=== PATIENT | female | born 1965 | race Caucasian/White ===

== ENCOUNTER 2016-11-06 09:34 | Emergency (ER) | payer BC ==
[~2016-11-06 09:34] MED LIST: AMOX1TAB61 PO
--- NOTE | 2016-11-06 09:35 | PHYS DOC ---
Adult General Chief Complaint Chief Complaint: BACK PAIN - NO INJURY HPI HPI Patient is a 50 year old female who presents with left lower back pain that radiates around to her left lower quadrant. She states his symptoms started at 6 AM this morning he been constant in nature nothing makes it better or worse. She does feel some nausea but denies any vomiting, she did have a loose/liquid stool this morning but otherwise been having normal bowel movements. She denies any fevers chills, chest pain shortness of breath. He states yesterday she had mild upset stomach but otherwise was normal. She states this kind of comes and goes ever since she's had all of her abdominal surgeries in the past. She's had a gastric sleeve, Susan-en-Y, and fistulas in addition to cholecystectomy. Her last surgery was in 2013. Review of Systems Review of Systems Constitutional: Denies fever or chills [] Eyes: Denies change in visual acuity, redness, or eye pain [] HENT: Denies nasal congestion or sore throat [] Respiratory: Denies cough or shortness of breath [] Cardiovascular: No additional information not addressed in HPI [] GI: Denies any blood in her stools, positive for abdominal pain, nausea, diarrhea Integument: Denies rash or skin lesions [] Neurologic: Denies headache, focal weakness or sensory changes [] Endocrine: Denies polyuria or polydipsia [] Current Medications Current Medications Current Medications Medications (Trade) Dose Ordered Sig/Sherice Start Time Stop Time Status Last Admin Dose Admin Fentanyl Citrate (Fentanyl 2ml Vial) 100 mcg STK-MED ONCE 11/06/16 11:52 11/06/16 11:53 DC Info (Do NOT chart on this entry -- for MONITORING) 1 each PRN DAILY PRN 11/06/16 10:15 11/08/16 10:14 Iohexol (Omnipaque 240 Mg/ml) 50 ml 1X ONCE 11/06/16 10:00 11/06/16 10:01 DC 11/06/16 10:00 50 ML Iohexol (Omnipaque 300 Mg/ml) 75 ml 1X ONCE 11/06/16 10:00 11/06/16 10:01 DC 11/06/16 10:00 75 ML Ketorolac Tromethamine (Toradol) 30 mg 1X ONCE 5/7/17 12:15 11/06/16 12:16 DC 11/06/16 12:20 30 MG Morphine Sulfate 4 mg PRN Q15MIN PRN 11/06/16 10:00 11/07/16 09:59 11/06/16 10:26 4 MG Sodium Chloride 1,000 ml @ 1,000 mls/hr 1X ONCE 11/06/16 12:15 11/06/16 13:14 11/06/16 12:21 1,000 MLS/HR Tamsulosin HCl (Flomax) 0.4 mg 1X ONCE 11/06/16 12:15 11/06/16 12:16 DC 11/06/16 12:20 0.4 MG Allergies Allergies Allergies Coded Allergies Type Severity Reaction Last Updated Verified Sulfa (Sulfonamide Antibiotics) Allergy Severe 09/02/13 Yes coconut oil Allergy Intermediate Rash 09/02/13 Yes levofloxacin Allergy Intermediate Itching 09/14/13 Yes piperacillin sodium Allergy Intermediate Rash 09/10/13 Yes tazobactam sodium Allergy Intermediate Rash 09/10/13 Yes vancomycin Allergy Intermediate Rash 09/02/13 Yes Erythromycin Base Adverse Reaction Intermediate Rash 09/02/13 Yes Physical Exam Physical Exam Constitutional: Well developed, well nourished, no acute distress, non-toxic appearance. [] HENT: Normocephalic, atraumatic, bilateral external ears normal, oropharynx moist, no oral exudates, nose normal. [] Eyes: PERRLA, EOMI, conjunctiva normal, no discharge. [] Neck: Normal range of motion, no tenderness, supple, no stridor. [] Cardiovascular:Heart rate regular rhythm, no murmur [] Lungs & Thorax: Bilateral breath sounds clear to auscultation [] Abdomen: Bowel sounds hypoactive, mild tender to palpation in the left lower quadrant and lumbar area, no rebound or guarding, no masses, no pulsatile masses. [] Skin: Warm, dry, no erythema, no rash. [] Back: No tenderness, no CVA tenderness. [] Extremities: No tenderness, no cyanosis, no clubbing, ROM intact, no edema. [] Neurologic: Alert and oriented X 3, normal motor function, normal sensory function, no focal deficits noted. [] Psychologic: Affect normal, judgement normal, mood normal. [] Current Patient Data Vital Signs Vital Signs Date Time Temp Pulse Resp B/P (MAP) Pulse Ox O2 Delivery O2 Flow Rate FiO2 11/06/16 11:56 61 22 136/70 (92) 99 Room Air 11/06/16 09:40 97.8 97.8 Lab Values Laboratory Tests Test 11/06/16 09:09 11/06/16 10:05 11/06/16 10:10 POC Urine HCG, Qualitative Hcg negative (Negative) Urine Collection Type Void Urine Color Yellow Urine Clarity Clear Urine pH 6.0 Urine Specific Grethel 1.015 Urine Protein Negative mg/dL (NEG-TRACE) Urine Glucose (UA) Negative mg/dL (NEG) Urine Ketones (Stick) Negative mg/dL (NEG) Urine Blood Negative (NEG) Urine Nitrite Negative (NEG) Urine Bilirubin Negative (NEG) Urine Urobilinogen Dipstick 1.0 mg/dL (0.2 mg/dL) Urine Leukocyte Esterase Negative (NEG) Urine RBC 0 /HPF (0-2) Urine WBC 0 /HPF (0-4) Urine Squamous Epithelial Cells Few /LPF Urine Bacteria 0 /HPF (0-FEW) White Blood Count 5.7 x10^3/uL (4.0-11.0) Red Blood Count 5.12 x10^6/uL (3.50-5.40) Hemoglobin 13.9 g/dL (12.0-15.5) Hematocrit 41.5 % (36.0-47.0) Mean Corpuscular Volume 81 fL (79-100) Mean Corpuscular Hemoglobin 27 pg (25-35) Mean Corpuscular Hemoglobin Concent 34 g/dL (31-37) Red Cell Distribution Width 14.6 % (11.5-14.5) H Platelet Count 116 x10^3/uL (140-400) L Neutrophils (%) (Auto) 73 % (31-73) Lymphocytes (%) (Auto) 15 % (24-48) L Monocytes (%) (Auto) 10 % (0-9) H Eosinophils (%) (Auto) 2 % (0-3) Basophils (%) (Auto) 0 % (0-3) Neutrophils # (Auto) 4.1 x10^3uL (1.8-7.7) Lymphocytes # (Auto) 0.9 x10^3/uL (1.0-4.8) L Monocytes # (Auto) 0.6 x10^3/uL (0.0-1.1) Eosinophils # (Auto) 0.1 x10^3/uL (0.0-0.7) Basophils # (Auto) 0.0 x10^3/uL (0.0-0.2) Prothrombin Time 13.4 SEC (11.7-14.0) Prothrombin Time INR 1.1 (0.8-1.1) PTT 27 SEC (24-38) Sodium Level 140 mmol/L (136-145) Potassium Level 4.1 mmol/L (3.5-5.1) Chloride Level 103 mmol/L (98-107) Carbon Dioxide Level 29 mmol/L (21-32) Anion Gap 8 (6-14) Blood Urea Nitrogen 15 mg/dL (7-20) Creatinine 0.9 mg/dL (0.6-1.0) Estimated GFR (Cockcroft-Gault) 66.5 Glucose Level 92 mg/dL (70-99) Calcium Level 9.0 mg/dL (8.5-10.1) Total Bilirubin 0.5 mg/dL (0.2-1.0) Direct Bilirubin 0.1 mg/dL (0.0-0.2) Aspartate Amino Transferase (AST) 24 U/L (15-37) Alanine Aminotransferase (ALT) 23 U/L (14-59) Alkaline Phosphatase 81 U/L (46-116) Creatine Kinase 112 U/L (26-192) Creatine Kinase MB (Mass) 1.0 ng/mL (0.0-3.6) Creatine Kinase MB Relative Index 0.9 % (0-4) Total Protein 8.3 g/dL (6.4-8.2) H Albumin 3.6 g/dL (3.4-5.0) Lipase 285 U/L (73-393) Laboratory Tests 11/06/16 10:10 Laboratory Tests 11/06/16 10:10 EKG EKG [] Radiology/Procedures Radiology/Procedures [facility] [address] [place] [address] IMAGING REPORT Signed PATIENT: EBONI WHEELER ACCOUNT: [id number] : 1965 LOCATION: ER AGE: 50 SEX: F EXAM STATUS: REG ER ORD. PHYSICIAN: HERB IYER MD REASON: abd pain PROCEDURE: CT ABD PELV W/ORAL&IV CONTRAST Indication left-sided abdominal pain. Axial images to the abdomen and pelvis were obtained. Both IV and oral contrast were administered. Approximately 75 cc of Omnipaque 300 was administered intravenously. Note is made of a previous examination 09/02/2013. There is a small pulmonary nodule at right lung base stable relative to the previous exam. An acute or significant finding at either lung base is not seen. There is a calcification ventral to the liver in the abdominal mesentery. This may reflect an area of mesenteric infarction. It is of doubtful clinical significance. The liver appears unremarkable. The spleen is at the upper limits of normal in size. There is a low-density 2 cm mass associated with the ventral and caudal aspect of the spleen. This may represent a cyst. It could be the sequela of an old injury. It is of doubtful clinical significance. An acute finding is not apparent associated with the spleen. The pancreas is unremarkable. There is a right adrenal mass measuring 1.8 cm in greatest dimension compatible with an adenoma and similar to the previous exam. The left adrenal gland appears normal. The right kidney and ureter are unremarkable. There is fluid in the left perirenal space. There is hydronephrosis and dilatation of the proximal ureter to the level of a 5 mm calculus just below the UPJ. The more distal left ureter is unremarkable. There is a large hernia containing small bowel loops in the right lower abdomen and pelvis which appears uncomplicated. Acute finding in the pelvis is not seen. IMPRESSION: 5 mm calculus in the proximal left ureter, just below the UPJ, with associated moderately high-grade obstructive uropathy. Large ventral hernia appearing uncomplicated. Right adrenal adenoma, stable. 2 cm cystic mass associated with the spleen of doubtful clinical significance PQRS Compliance Statement: One or more of the following individualized dose reduction techniques were utilized for this examination: 1. Automated exposure control 2. Adjustment of the mA and/or kV according to patient size 3. Use of iterative reconstruction technique DICTATED and SIGNED BY: SHREE ISAACS MD DATE: 11/06/16 1142 CC: HERB IYER MD; ARIADNA MACDONALD MD ~ Course & Med Decision Making Course & Med Decision Making Pertinent Labs and Imaging studies reviewed. (See chart for details) CT scan confirms a 5 mm stone in the left ureter. Labs are unremarkable. Patient received IV fluids, morphine, fentanyl, Toradol, Flomax is being discharged home. She is being discharged with Botkins 10/325 one tablet every 6 hours when necessary pain, Flomax, urology follow-up with return precautions. She is agreeable Plan B discharged in stable condition this time. Dragon Disclaimer Dragon Disclaimer This electronic medical record was generated, in whole or in part, using a voice recognition dictation system. Departure Departure Impression: Primary Impression: Kidney calculi Disposition: HOME, SELF-CARE Condition: STABLE Referrals: CLIFF ARCHIBALD MD (PCP) THOMPSON LEON MD Patient Instructions: Kidney Stones Additional Instructions: You have a kidney stone located on the left side. This likely explains your pain. Your being discharged home with oral pain medicines called Botkins. Botkins is a narcotic pain medicine and came. Judgment and make you sleepy. Please do not drive your car while taking this medicine. You will also need to take Flomax for the next 2 weeks. Be sure to push plenty of fluids to help pass the kidney stone. Please strain your urine in order to catch the stone. Take the stone with you to urology appointment with Dr. Leon. Return ER for severe pain , fevers or other concerns. Scripts Hydrocodone/Apap 10-325 (NORCO 10-325 TABLET) 1 Each Tablet 1 TAB PO PRN Q6HRS Y for PAIN, #20 TAB 0 Refills Prov: HERB IYER MD 11/06/16 Tamsulosin Hcl (FLOMAX) 0.4 Mg Cap.er.24h 1 CAP PO DAILY, #15 CAP 0 Refills Prov: HERB IYER MD 11/06/16 HERB IYER MD November 06, 2016 09:35
[2016-11-06] MEDS ORDERED: IV NORMAL SALINE 1000ML BAG 1,000 ML IV SCH (09:48)
[2016-11-06] MEDS ORDERED: MORPHINE SULFATE 4 MG/ML DISP.SYRIN. IV/SQ PRN (10:00)
[2016-11-06] MEDS ORDERED: IOHEXOL 300 MG/ML 75 ML VIAL IV ONE (10:00)
[2016-11-06] MEDS ORDERED: IOHEXOL 240 MG/ML 50ML VIAL. PO ONE (10:00)
[2016-11-06] MEDS ORDERED: CONTRAST GIVEN MC PRN (10:15)
[2016-11-06 10:33] LABS: BASO % 0 % (0-3); EOS % 2 % (0-3); HEMATOCRIT 41.5 % (36.0-47.0); HEMOGLOBIN 13.9 g/dL (12.0-15.5); LYMPH # 0.9 x10^3/uL (1.0-4.8); LYMPH % 15 % (24-48); MEAN CORPUSCULAR HEMOGLOBIN 27 pg (25-35); MEAN CORPUSCULAR HGB CONC 34 g/dL (31-37); MEAN CORPUSCULAR VOLUME 81 fL (79-100); MONO % 10 % (0-9); NEUT % 73 % (31-73); PLATELET COUNT 116 x10^3/uL (140-400); RED BLOOD COUNT 5.12 x10^6/uL (3.50-5.40); RED CELL DISTRIBUTION WIDTH 14.6 % (11.5-14.5); WHITE BLOOD COUNT 5.7 x10^3/uL (4.0-11.0)
[2016-11-06 10:36] LABS: BILIRUBIN,URINE NEGATIVE (NEG); GLUCOSE,URINE NEGATIVE (NEG); NITRITE,URINE NEGATIVE (NEG); PROTEIN,URINE NEGATIVE (NEG-TRACE)
[2016-11-06 10:46] LABS: BACTERIA,URINE 0 /HPF (0-FEW); RBC,URINE 0 /HPF (0-2); SQUAMOUS EPITHELIAL CELL,UR FEW /LPF; WBC,URINE 0 /HPF (0-4)
[2016-11-06 10:46] LABS: INR 1.1 (0.8-1.1); PROTHROMBIN TIME PATIENT 13.4 SEC (11.7-14.0)
[2016-11-06 10:53] LABS: CREATININE 0.9 mg/dL (0.6-1.0); GFR 66.5; POTASSIUM 4.1 mmol/L (3.5-5.1)
[2016-11-06 10:59] LABS: ALBUMIN 3.6 g/dL (3.4-5.0); DIRECT BILIRUBIN 0.1 mg/dL (0.0-0.2); TOTAL BILIRUBIN 0.5 mg/dL (0.2-1.0); TOTAL PROTEIN 8.3 g/dL (6.4-8.2)
[2016-11-06] MEDS ORDERED: fentaNYL PF VIAL 100 MCG/2 ML VIAL ONE (11:52)
--- NOTE | 2016-11-06 11:54 | RAD ---
Indication left-sided abdominal pain. Axial images to the abdomen and pelvis were obtained. Both IV and oral contrast were administered. Approximately 75 cc of Omnipaque 300 was administered intravenously. Note is made of a previous examination 09/02/2013. There is a small pulmonary nodule at right lung base stable relative to the previous exam. An acute or significant finding at either lung base is not seen. There is a calcification ventral to the liver in the abdominal mesentery. This may reflect an area of mesenteric infarction. It is of doubtful clinical significance. The liver appears unremarkable. The spleen is at the upper limits of normal in size. There is a low-density 2 cm mass associated with the ventral and caudal aspect of the spleen. This may represent a cyst. It could be the sequela of an old injury. It is of doubtful clinical significance. An acute finding is not apparent associated with the spleen. The pancreas is unremarkable. There is a right adrenal mass measuring 1.8 cm in greatest dimension compatible with an adenoma and similar to the previous exam. The left adrenal gland appears normal. The right kidney and ureter are unremarkable. There is fluid in the left perirenal space. There is hydronephrosis and dilatation of the proximal ureter to the level of a 5 mm calculus just below the UPJ. The more distal left ureter is unremarkable. There is a large hernia containing small bowel loops in the right lower abdomen and pelvis which appears uncomplicated. Acute finding in the pelvis is not seen. IMPRESSION: 5 mm calculus in the proximal left ureter, just below the UPJ, with associated moderately high-grade obstructive uropathy. Large ventral hernia appearing uncomplicated. Right adrenal adenoma, stable. 2 cm cystic mass associated with the spleen of doubtful clinical significance PQRS Compliance Statement: One or more of the following individualized dose reduction techniques were utilized for this examination: 1. Automated exposure control 2. Adjustment of the mA and/or kV according to patient size 3. Use of iterative reconstruction technique
[2016-11-06 11:56] VITALS: BP 136/70
[2016-11-06] MEDS ORDERED: fentaNYL PF VIAL 100 MCG/2 ML VIAL IV PRN (12:00)
[2016-11-06] MEDS ORDERED: KETOROLAC TROMETHAMINE 30 MG/ML INJ. IV ONE (12:15)
[2016-11-06] MEDS ORDERED: TAMSULOSIN 0.4 MG CAP.ER.24H. PO ONE (12:15)
[2016-11-06] MEDS ORDERED: IV NORMAL SALINE 1000ML BAG 1,000 ML IV ONE (12:15)
[2016-11-06] MEDS ORDERED: HYDR-963 PO (12:44)
[2016-11-06] MEDS ORDERED: TAMS0.4C97 PO (12:44)
== END 2016-11-06 12:56 | disposition home or self-care (01) ==
LOC: ER 09:34
DX: N20.0 Calculus of kidney (principal); Z90.49 Acquired absence of other specified parts of digestive tract; Z88.1 Allergy status to other antibiotic agents; Z88.2 Allergy status to sulfonamides; Z91.048 Other nonmedicinal substance allergy status
CPT/HCPCS: 36415; 74177; 80048; 80076; 81001; 82553; 83690; 84703; 85027; 85610; 85730; 96361; 96374; 96375; 99285; J1885; J2270; J3010; J7030; Q9966; Q9967; 81025

== ENCOUNTER → 2016-11-09 | Day surgery (SDC) | payer BC ==
--- NOTE | 2016-11-08 18:11 | PREOP HP ---
DATE OF SERVICE: 11/09/2016 SURGICAL HISTORY AND PHYSICAL CHIEF COMPLAINT: Left ureteral calculus. HISTORY OF PRESENT ILLNESS: The patient is a very pleasant 50-year-old white female with history of 5-mm left proximal ureteral stone with obstruction. The patient was seen in the Emergency Room and diagnosed with her stone, but she has continued to have a left-sided flank pain. The patient noted also to have inflammation around left kidney and some left perirenal fluid. Urine is negative for infection. I discussed with the patient and her the options, alternatives, benefits, risks and possible complications of cystoscopy, left retrograde pyelogram, left ureteral stent placement to get her unobstructed. She understands this and does wish to proceed with operation. We will therefore proceed accordingly. PAST MEDICAL HISTORY: Significant for anxiety, diabetes, hypertension, morbid obesity, and ____ disease. PAST SURGICAL HISTORY: The patient has had prior gastric sleeve operation, leg surgery, breast reduction, cholecystectomy, ____, partial gastrectomy and Susan-en-Y. MEDICATIONS: The patient is currently just on tamsulosin and pain pills p.r.n. ALLERGIES: SHE HAS ALLERGY TO ERYTHROMYCIN,VANCOMYCIN, SULFA, AND LEVAQUIN. REVIEW OF SYSTEMS: The patient with left-sided flank pain. PHYSICAL EXAMINATION: GENERAL: Well-developed, well-nourished white female in minimal distress. HEENT: Normocephalic, atraumatic. NECK: Supple. CHEST: Clear to auscultation. CARDIOVASCULAR: Regular rate and rhythm. ABDOMEN: Obese, soft, tenderness in the left CVA area. EXTREMITIES: Without clubbing, cyanosis or edema. NEUROLOGIC: Grossly intact. ASSESSMENT: I talked with the patient and her concerning her left ureteral stone. We discussed the options, alternatives, benefits, risks and possible complications of medical expulsive therapy versus surgical intervention with cystoscopy, left retrograde pyelogram, left ureteral stent placement. The patient understands this and does wish to proceed with operation. We will therefore proceed accordingly. THOMPSON JUAREZ MD DR: JANICE/lory JOB#: [id number] / [id number]
[~2016-11-09] MED LIST changes: +DEXAMETHASONE SOD PHOS 20 MG/5 ML VIAL. ONE; +HYDR-963 PO; +HYDROmorphone 2 MG/ML VIAL IV PRN; +IOHEXOL 300 MG/ML 50 ML VIAL. ONE; +IV RINGERS,LACTATED 1000ML 1,000 ML IV SCH; +LIDOCAINE 1% 1 ML SYRINGE. ID PRN; +LIDOCAINE 2% JELLY 6ML IN APPLICATOR. ONE; +MIDAZOLAM HCL/PF 2 MG/2 ML VIAL. ONE; +MORPHINE SULFATE 2 MG/ML DISP.SYRIN. IV PRN; +ONDANSETRON PF 4 MG/2 ML VIAL. IV PRN; +ONDANSETRON PF 4 MG/2 ML VIAL. ONE; +PHENYLEPHRINE in 0.9% NACL PF 1 MG/10 ML DISP.SYRIN. IV ONE; +PROCHLORPERAZINE 10 MG/2 ML VIAL. IV PRN; +PROPOFOL 0 ML IV ONE; +PROPOFOL 20 ML IV ONE; +SEVOFLURANE 31 TO 60 MINUTES. IH ONE; +TAMS0.4C97 PO; +fentaNYL PF VIAL 100 MCG/2 ML VIAL IV PRN; +fentaNYL PF VIAL 100 MCG/2 ML VIAL ONE
--- NOTE | 2016-11-09 17:40 | DISCH ---
DISCHARGE INSTRUCTIONS Condition on Discharge Condition on Discharge: Stable Activity After Discharge Activity Instructions for Disc: Activity as tolerated Diet after Discharge Diet after Discharge: Regular Contacting the DRAmos after DC Call your doctor for: If your condition worsens Follow-Up Follow up with: Follow up Dr. Leon next week in office with THOMPSON AVENDAÑO MD November 09, 2016 17:40
--- NOTE | 2016-11-09 17:41 | PDOC4 ---
Operative Note Operative Note pre-op dx-left ureteral stone procedure-cystoscopy, left retrograde pyelogram, left ureteral stent placement surgeon-jonel garcia-general Pt. to PACU in stable condition THOMPSON JUAREZ MD November 09, 2016 17:41
[2016-11-09 18:50] VITALS: BP 158/68
--- NOTE | 2016-11-09 21:35 | OP ---
DATE OF SURGERY: 11/09/2016 OPERATION: Cystoscopy, left retrograde pyelogram, left ureteral stent placement. SURGEON: Thompson Leon M.D. ANESTHESIA: General. PREOPERATIVE DIAGNOSIS: Left ureteral stone. POSTOPERATIVE DIAGNOSIS: Left ureteral stone. INDICATIONS: The patient is a very pleasant 50-year-old white female with a history of 5 mm left proximal ureteral stone with continued left renal colic. The patient was also noted to have significant left perirenal stranding and even some perirenal fluid collection on ____ CT. I have discussed with the patient the options, alternatives, benefits, risks and possible complications of cystoscopy, left retrograde pyelogram, left ureteral stent placement to get her unobstructed. She understands this and does wish to proceed ahead with the operation. DESCRIPTION OF PROCEDURE: After obtaining informed consent, the patient was taken to operating room. After an excellent general anesthetic, the patient was placed in a dorsolithotomy position. Groin was prepped and draped in sterile fashion. The patient was preloaded with IV antibiotics. Panendoscopy and cystoscopy then performed with the 30 and 70-degree lens and the 21-British cystoscope sheath. Bladder was entered and inspected. Both ureteral orifices were identified and found to be grossly patent. Bladder wall appeared smooth and without any lesions. No bladder tumors or bladder stones were identified. Following this, a left retrograde pyelogram was performed. Left distal mid ureter appeared within normal limits. The patient was noted to have filling defect in the left proximal ureter consistent with the patient's stone with dilation above that level. It appeared that the stone began to float back towards the left kidney with the retrograde pyelogram and a floppy tipped ZIPwire was then passed up the left ureteral orifice up the left ureter to the left kidney and following this, a 5-British Pollack catheter was passed over the ZIPwire, placing up into the left kidney. The ZIPwire removed. The patient noted to have prompt hydronephrotic drip after the left collecting system was drained. Retrograde pyelogram showed the left collecting system intact and decompressed. Following this, floppy tipped ZIPwire was then replaced through the Pollack catheter and the Pollack catheter removed. Following this, a 6 x 26 double-J stent was then passed up the ZIPwire, placing one curl in the left kidney and the other curl in the bladder and the ZIPwire removed. Stent position was checked by fluoroscopy and direct vision, found to be in good position. Following this, bladder was then drained. The cystoscope withdrawn from the patient. The patient tolerated the procedure very well, was taken to recovery room in stable condition. Plan will be to have the patient follow up in Urology office next week for followup. We will get a KUB and renal ultrasound on her at that point and then proceed ahead at that point with further definitive therapy of her left-sided stone. THOMPSON LEON MD DR: JANICE/lory JOB#: [id number] / [id number]
== END | disposition home or self-care (01) ==
LOC: SURG 13:28
PROVIDERS: ATTEND Urology
DX: N20.1 Calculus of ureter (principal); E66.9 Obesity, unspecified; Z68.42 Body mass index [BMI] 45.0-49.9, adult; Z90.49 Acquired absence of other specified parts of digestive tract; Z87.442 Personal history of urinary calculi; Z87.39 Personal history of other diseases of the musculoskeletal system and connective tissue
CPT/HCPCS: 52332; 74420; C1769; C2617; J0690; J1100; J2250; J2370; J2405; J2704; J3010; Q9967

== ENCOUNTER → 2016-11-16 | Outpatient (CLI) | payer BC ==
[2016-11-09 18:50] VITALS: BP 158/68
[~2016-11-16] MED LIST changes: -DEXAMETHASONE SOD PHOS 20 MG/5 ML VIAL. ONE; -HYDROmorphone 2 MG/ML VIAL IV PRN; -IOHEXOL 300 MG/ML 50 ML VIAL. ONE; -IV RINGERS,LACTATED 1000ML 1,000 ML IV SCH; -LIDOCAINE 1% 1 ML SYRINGE. ID PRN; -LIDOCAINE 2% JELLY 6ML IN APPLICATOR. ONE; -MIDAZOLAM HCL/PF 2 MG/2 ML VIAL. ONE; -MORPHINE SULFATE 2 MG/ML DISP.SYRIN. IV PRN; -ONDANSETRON PF 4 MG/2 ML VIAL. IV PRN; -ONDANSETRON PF 4 MG/2 ML VIAL. ONE; -PHENYLEPHRINE in 0.9% NACL PF 1 MG/10 ML DISP.SYRIN. IV ONE; -PROCHLORPERAZINE 10 MG/2 ML VIAL. IV PRN; -PROPOFOL 0 ML IV ONE; -PROPOFOL 20 ML IV ONE; -SEVOFLURANE 31 TO 60 MINUTES. IH ONE; -fentaNYL PF VIAL 100 MCG/2 ML VIAL IV PRN; -fentaNYL PF VIAL 100 MCG/2 ML VIAL ONE
--- NOTE | 2016-11-16 14:20 | RAD ---
KUB, 11/16/2016: History: Check ureteral stent placement Comparison is made to images from a retrograde pyelogram study from 11/09/2016. The left ureteral stent remains in place in satisfactory position. The renal regions are largely obscured by abundant bowel content. No definite ureteral calculus is seen along the course of the stent. A density projected adjacent to the stent at the L4 level appears to represent a portion of the L4 transverse process. Several pelvic calcifications are probably vascular. Bowel gas extends low along the right into the patient's known ventral hernia. IMPRESSION: The left ureteral stent appears to be in satisfactory position.
--- NOTE | 2016-11-16 20:00 | HP ---
ADMIT DATE: 11/16/2016 The patient is coming next week for operation. CHIEF COMPLAINT: Left ureteral calculus. HISTORY OF PRESENT ILLNESS: The patient is a very pleasant 50-year-old female with history of 5 mm left proximal ureteral stone. The patient underwent cystoscopy, left retrograde pyelogram and left ureteral stenting. The patient now in for definitive therapy of her stone. I have discussed with the patient the options, alternatives, benefits, risks and possible complications of left ureteroscopy with holmium laser lithotripsy and left ureteral stent change. She understands this and does wish to proceed ahead with operation. PAST MEDICAL HISTORY: Significant for anxiety, diabetes, hypertension, obesity. PAST SURGICAL HISTORY: The patient has had prior gastric sleeve operation, leg surgery, breast reduction, cholecystectomy, partial gastrectomy and Susan-en-Y. MEDICATIONS: The patient is currently just on pain pills p.r.n. ALLERGIES: THE PATIENT HAS ALLERGY TO ERYTHROMYCIN, VANCOMYCIN, SULFA, LEVAQUIN. REVIEW OF SYSTEMS: The patient is feeling well with just minimal stent pain. PHYSICAL EXAMINATION: GENERAL: The patient is well-developed, well-nourished white female in no acute distress. HEENT: Normocephalic, atraumatic. NECK: Supple. CHEST: Clear to auscultation. CARDIOVASCULAR: Regular rate and rhythm. ABDOMEN: Soft, really nontender. Minimal left-sided flank pain. Obese without any significant tenderness. EXTREMITIES: Without clubbing, cyanosis or edema. NEUROLOGIC: Grossly intact. ASSESSMENT AND PLAN: I discussed with the patient the options, alternatives, benefits, risks and possible complications of left-sided extracorporeal shockwave lithotripsy versus left ureteroscopy and holmium laser lithotripsy and left ureteral stent change. She understands this and does wish to proceed ahead with the ureteroscopy and holmium laser lithotripsy and stent change. We will therefore proceed accordingly. THOMPSON JUAREZ MD DR: JANICE/lory JOB#: [id number] / [id number]
== END | disposition home or self-care (01) ==
LOC: RAD 13:28
PROVIDERS: ATTEND Urology
DX: N20.1 Calculus of ureter (principal)
CPT/HCPCS: 74000

== ENCOUNTER → 2016-11-21 | Outpatient (CLI) | payer BC ==
[2016-11-09 18:50] VITALS: BP 158/68
--- NOTE | 2016-11-21 16:19 | RAD ---
Indication left ureteral stone assess for potential hydronephrosis. Grayscale imaging targeted to the kidneys was performed. Note is made of a KUB 11/16/[address] examination of the abdomen and pelvis 11/06/2016. On the CT examination a calculus is seen just below the left UPJ with associated left sided hydronephrosis. The right kidney measures 11.8 x 5.6 x 5.3 cm and appears essentially unremarkable. There is a hypoechoic 1.2 cm mass associated with the kidney compatible with a cyst. The left kidney measures 12 x 4.2 x 5.6 cm and appears unremarkable. No mass is seen. No hydronephrosis is apparent. The urinary bladder is not well distended. It appears grossly normal. IMPRESSION: Right renal cyst. No left-sided hydronephrosis seen
== END | disposition home or self-care (01) ==
LOC: US 15:39
PROVIDERS: ATTEND Urology
DX: N20.1 Calculus of ureter (principal); N28.1 Cyst of kidney, acquired
CPT/HCPCS: 76770

== ENCOUNTER 2016-11-23 08:52 | Day surgery (SDC) | payer BC ==
[~2016-11-23 08:52] MED LIST changes: +DEXAMETHASONE SOD PHOS 20 MG/5 ML VIAL. ONE; +HYDROmorphone 2 MG/ML VIAL IV PRN; +IOHEXOL 300 MG/ML 50 ML VIAL. ONE; +IV RINGERS,LACTATED 1000ML 1,000 ML IV SCH; +LIDOCAINE 1% 1 ML SYRINGE. ID PRN; +LIDOCAINE 2% JELLY 6ML IN APPLICATOR. ONE; +LIDOCAINE 2% PF Vial for OR 5 ML VIAL. ONE; +MORPHINE SULFATE 2 MG/ML DISP.SYRIN. IV PRN; +ONDANSETRON PF 4 MG/2 ML VIAL. IV PRN; +ONDANSETRON PF 4 MG/2 ML VIAL. ONE; +PROCHLORPERAZINE 10 MG/2 ML VIAL. IV PRN; +PROPOFOL 20 ML IV ONE; +fentaNYL PF VIAL 100 MCG/2 ML VIAL IV PRN
[2016-11-23] MEDS ORDERED: fentaNYL PF VIAL 100 MCG/2 ML VIAL ONE (10:10)
--- NOTE | 2016-11-23 11:45 | DISCH ---
DISCHARGE INSTRUCTIONS Condition on Discharge Condition on Discharge: Stable Activity After Discharge Activity Instructions for Disc: Activity as tolerated Diet after Discharge Diet after Discharge: Regular Contacting the DR. after DC Call your doctor for: If your condition worsens Follow-Up Follow up with: Follow up Dr. Leon next week for cystoscopy and stent removal. THOMPSON LEON MD November 23, 2016 11:45
--- NOTE | 2016-11-23 11:48 | PDOC4 ---
Operative Note Operative Note pre-op dx-left ureteral stone procedure-cystoscopy, left uretropyloscopy, left ureteral stent change surgeon-jonel garcia-general Pt. to PACU in stable condition THOMPSON JUAREZ MD November 23, 2016 11:48
[2016-11-23 12:49] VITALS: BP 147/75
--- NOTE | 2016-11-23 17:46 | OP ---
DATE OF SURGERY: 11/23/2016 OPERATION: Cystoscopy, left ureteral pyeloscopy, and left ureteral stent change. SURGEON: Thompson Leon M.D. ANESTHESIA: General. PREOPERATIVE DIAGNOSIS: Left ureteral stone. POSTOPERATIVE DIAGNOSIS: Left ureteral stone. INDICATIONS: The patient is a very pleasant 50-year-old white female with history of a 5 mm left proximal ureteral stone. The patient initially had undergone cystoscopy with left retrograde pyelogram and left ureteral stent placement approximately a week prior. The patient is now in for definitive therapy of her stone. I have discussed with the patient the options, alternatives, benefits, risks and possible complications of cystoscopy, left ureteroscopy, possible laser lithotripsy, possible left ureteral stent change and she understands this and does wish to proceed with the operation. DESCRIPTION OF PROCEDURE: After obtaining informed consent, the patient was taken to operating room. After an excellent general anesthetic, the patient was placed in a dorsolithotomy position. Groin was prepped and draped in sterile fashion. The patient was preloaded with IV antibiotics. Panendoscopy and cystoscopy were then performed with the 30-degree lens and the 21-Setswana cystoscope sheath. Bladder was entered and inspected. Distal curl of ureteral stent could be seen protruding from the left hemitrigone. Following this, a floppy tipped ZIPwire was then passed up the left ureter alongside the stent up to the left kidney and following this, a left double-J stent was then removed. Following this, the bladder was then drained, the cystoscope withdrawn from the patient. Following this, the thin semirigid ureteroscope was then passed per urethra up alongside the ZIPwire up the left ureter. The patient noted to have some moderate inflammation in the area of the left distal ureter. The remainder of the left distal, mid, and proximal ureter were inspected thoroughly and no stone was identified. Following this, the thin semirigid ureteroscope was removed from the patient and then the thin flexible ureteroscope was then passed per urethra up alongside over a second ZIPwire up the left ureter and then left calices, renal pelvis, and left ureter were then inspected thoroughly with the thin flexible ureteroscope and no stone was identified. It is possible that the stone had come out with the removal of the indwelling left double-J stent, but no stone was identified upon inspection of the left collecting system and bladder. Therefore, at this point, retrograde pyelogram was performed, which showed no obvious filling defects and the collecting system to be completely intact. Following this, ureteroscope was withdrawn from the patient and the cystoscope then replaced and then a new 6 x 22 double-J stent was then passed up the ZIPwire, placing one curl in the left kidney and the other curl in the bladder and the ZIPwire removed. Stent position was checked by fluoroscopy and direct vision, found to be in good position. Following this, bladder was then drained, the cystoscope withdrawn from the patient. The patient tolerated the procedure very well, was taken to recovery room in stable condition. We will plan on having the patient return for followup in the Urology office in 1 week for cystoscopy and stent removal. THOMPSON LEON MD DR: JANICE/lory JOB#: [id number] / [id number]
== END 2016-11-23 13:03 | disposition home or self-care (01) ==
LOC: SURG 08:52
PROVIDERS: ATTEND Urology
DX: N20.1 Calculus of ureter (principal); E66.9 Obesity, unspecified; E11.9 Type 2 diabetes mellitus without complications; Z90.49 Acquired absence of other specified parts of digestive tract; Z87.442 Personal history of urinary calculi; Z86.14 Personal history of Methicillin resistant Staphylococcus aureus infection; Z87.39 Personal history of other diseases of the musculoskeletal system and connective tissue
CPT/HCPCS: 52332; 74420; C1769; C2617; J1100; J2405; J2704; J3010; Q9967; J0690

== ENCOUNTER → 2016-11-29 | Outpatient (CLI) | payer BC ==
[2016-11-23 12:49] VITALS: BP 147/75
[~2016-11-29] MED LIST changes: -DEXAMETHASONE SOD PHOS 20 MG/5 ML VIAL. ONE; -HYDROmorphone 2 MG/ML VIAL IV PRN; -IOHEXOL 300 MG/ML 50 ML VIAL. ONE; -IV RINGERS,LACTATED 1000ML 1,000 ML IV SCH; -LIDOCAINE 1% 1 ML SYRINGE. ID PRN; -LIDOCAINE 2% JELLY 6ML IN APPLICATOR. ONE; -LIDOCAINE 2% PF Vial for OR 5 ML VIAL. ONE; -MORPHINE SULFATE 2 MG/ML DISP.SYRIN. IV PRN; -ONDANSETRON PF 4 MG/2 ML VIAL. IV PRN; -ONDANSETRON PF 4 MG/2 ML VIAL. ONE; -PROCHLORPERAZINE 10 MG/2 ML VIAL. IV PRN; -PROPOFOL 20 ML IV ONE; -fentaNYL PF VIAL 100 MCG/2 ML VIAL IV PRN
--- NOTE | 2016-11-29 13:42 | RAD ---
Abdomen radiograph History: Follow-up stent placement, renal stones. Comparison: 11/16/2016. Findings: AP view of the abdomen. Left double-J ureteral stent is again seen. Placement of the stent appears appropriate. No convincing calcification is seen along the course of the left stent. There is a calcification measuring 4 mm projecting over the inferior left renal shadow, presumably nephrolith. Right renal shadow is obscured by bowel gas and stool. Bowel gas pattern is without evidence of obstruction. Several surgical clips are seen in the abdomen. Impression: 1. Left double-J ureteral stent has appropriate appearance. 2. Nonobstructive left nephrolith.
== END | disposition home or self-care (01) ==
LOC: RAD 13:00
PROVIDERS: ATTEND Urology
DX: N20.2 Calculus of kidney with calculus of ureter (principal)
CPT/HCPCS: 74000

== ENCOUNTER → 2017-02-01 | Outpatient (CLI) | payer BC ==
--- NOTE | 2017-02-01 10:37 | RAD ---
KUB, 02/01/2017: History: Kidney stone Comparison is made to a study from 11/29/2016. The left ureteral stent has been removed. No definite urinary tract calculi are seen. The bowel loops are not dilated. Surgical clips, sutures and several other radiopaque foreign bodies are again noted projected over the upper abdomen. Bowel gas extends inferolaterally on the right due to the patient's known ventral hernia. IMPRESSION: 1. The left ureteral stent has been removed. 2. No urinary tract calculus is identified.
== END | disposition home or self-care (01) ==
LOC: RAD 07:29
PROVIDERS: ATTEND Urology
DX: N20.0 Calculus of kidney (principal)
CPT/HCPCS: 74000

== ENCOUNTER 2018-02-10 00:40 | Inpatient (IN) | payer BC ==
[2018-02-10] MEDS ORDERED: DEXTROSE 50% 25 GM / 50ML DISP.SYRIN. IV (02:15)
[2018-02-10] MEDS ORDERED: MORPHINE SULFATE 2 MG/ML DISP.SYRIN. IV/SQ (02:15)
[2018-02-10 05:16] LABS: ADD MAN DIFF? NO
[2018-02-10 05:49] LABS: ANION GAP 6 (6-14); BLOOD UREA NITROGEN 9 mg/dL (7-20); CARBON DIOXIDE 28 mmol/L (21-32); CHLORIDE 106 mmol/L (98-107); CHOLESTEROL 213 mg/dL (0-200); CREATININE 0.7 mg/dL (0.6-1.0); GFR 88.2; GLUCOSE 86 mg/dL (70-99); HDLC 31 mg/dL (40-60); LDLC 153 mg/dL (0-100); MAGNESIUM 1.9 mg/dL (1.8-2.4); NON-HDL CHOLESTEROL 182 mg/dL (0-129); POTASSIUM 3.7 mmol/L (3.5-5.1); SODIUM 140 mmol/L (136-145); TRIGLYCERIDES 146 mg/dL (0-150); VLDLC 29 mg/dL (0-40)
[2018-02-10 05:50] LABS: CHOLESTEROL/HDL RATIO 6.9
[2018-02-10 06:27] LABS: BASO % 0 % (0-3); EOS # 0.1 x10^3/uL (0.0-0.7); EOS % 3 % (0-3); HEMATOCRIT 33.6 % (36.0-47.0); HEMOGLOBIN 11.1 g/dL (12.0-15.5); LYMPH # 1.2 x10^3/uL (1.0-4.8); LYMPH % 29 % (24-48); MEAN CORPUSCULAR HEMOGLOBIN 27 pg (25-35); MEAN CORPUSCULAR HGB CONC 33 g/dL (31-37); MEAN CORPUSCULAR VOLUME 80 fL (79-100); MONO # 0.4 x10^3/uL (0.0-1.1); MONO % 10 % (0-9); NEUT # 2.5 x10^3uL (1.8-7.7); NEUT % 58 % (31-73); PLATELET COUNT 122 x10^3/uL (140-400); RED BLOOD COUNT 4.18 x10^6/uL (3.50-5.40); RED CELL DISTRIBUTION WIDTH 15.5 % (11.5-14.5); WHITE BLOOD COUNT 4.3 x10^3/uL (4.0-11.0)
[2018-02-10] MEDS: INSULIN LISPRO 300 UNITS/3 ML INSULN.PEN. SQ ×2 (07:30→11:30)
[2018-02-10] MEDS: LOSARTAN POTASSIUM 50 MG TABLET. PO (07:56)
[2018-02-10] MEDS: ACETAMINOPHEN 500 MG TABLET PO (07:57)
[2018-02-10 08:32] LABS: TROPONINI < 0.017 ng/mL (0.000-0.055)
[2018-02-10] MEDS ORDERED: traMADol 50 MG TABLET PO (14:15)
[2018-02-10] MEDS ORDERED: hydrALAZINE 20 MG/ML VIAL. IVP (14:15)
[2018-02-10] MEDS ORDERED: DOCUSATE SODIUM 100 MG CAPSULE. PO (14:15)
[2018-02-10] MEDS ORDERED: MORPHINE SULFATE 2 MG/ML DISP.SYRIN. IV (14:15)
[2018-02-10] MEDS ORDERED: ONDANSETRON PF 4 MG/2 ML VIAL. IV (14:15)
[2018-02-10] MEDS ORDERED: ACETAMINOPHEN 325 MG TABLET. PO (14:15)
[2018-02-10] MEDS: ASPIRIN 325 MG TABLET PO (15:26)
[2018-02-10] MEDS: ENOXAPARIN 40 MG/0.4 ML SYRINGE. SQ (15:26)
[2018-02-11 04:47] LABS: ADD MAN DIFF? NO
[2018-02-11 04:51] LABS: BASO % 0 % (0-3); EOS # 0.1 x10^3/uL (0.0-0.7); EOS % 3 % (0-3); HEMATOCRIT 35.2 % (36.0-47.0); HEMOGLOBIN 11.5 g/dL (12.0-15.5); LYMPH % 23 % (24-48); MEAN CORPUSCULAR HEMOGLOBIN 26 pg (25-35); MEAN CORPUSCULAR HGB CONC 33 g/dL (31-37); MEAN CORPUSCULAR VOLUME 81 fL (79-100); MONO # 0.5 x10^3/uL (0.0-1.1); MONO % 12 % (0-9); NEUT # 2.8 x10^3uL (1.8-7.7); NEUT % 63 % (31-73); PLATELET COUNT 121 x10^3/uL (140-400); RED BLOOD COUNT 4.36 x10^6/uL (3.50-5.40); RED CELL DISTRIBUTION WIDTH 15.4 % (11.5-14.5); WHITE BLOOD COUNT 4.4 x10^3/uL (4.0-11.0)
[2018-02-11 05:08] LABS: ANION GAP 6 (6-14); BLOOD UREA NITROGEN 13 mg/dL (7-20); CALCIUM 8.3 mg/dL (8.5-10.1); CARBON DIOXIDE 29 mmol/L (21-32); CHLORIDE 107 mmol/L (98-107); CREATININE 0.7 mg/dL (0.6-1.0); GFR 88.2; GLUCOSE 88 mg/dL (70-99); POTASSIUM 3.9 mmol/L (3.5-5.1); SODIUM 142 mmol/L (136-145)
[2018-02-11 05:25] LABS: THYROID STIM HORMONE (TSH) 2.272 uIU/mL (0.358-3.74)
[2018-02-11] MEDS: REGADENOSON 0.4 MG/5 ML DISP.SYRIN. IV (09:33)
[2018-02-11] MEDS: LOSARTAN POTASSIUM 50 MG TABLET. PO (10:13)
[2018-02-11] MEDS: ASPIRIN 325 MG TABLET PO (10:13)
== END 2018-02-11 16:23 | disposition home or self-care (01) | DRG 880 ==
LOC: 2 SOUTH 00:40
DX: F41.9 Anxiety disorder, unspecified (principal); I10 Essential (primary) hypertension; Z82.49 Family history of ischemic heart disease and other diseases of the circulatory system; Z88.6 Allergy status to analgesic agent; Z88.1 Allergy status to other antibiotic agents; Z88.8 Allergy status to other drugs, medicaments and biological substances; E66.01 Morbid (severe) obesity due to excess calories; E78.5 Hyperlipidemia, unspecified
CPT/HCPCS: 36415; 71046; 78452; 80048; 80061; 83735; 84443; 84484; 85025; 93005; 93017; 93306; 96374; 96375; 96376; A9500; J1650; J1815; J2785

== ENCOUNTER 2018-09-04 08:04 | Observation (INO) | payer BC ==
[~2018-09-04] VITALS: Ht 157.5 cm; Wt 115.8 kg
[2018-09-04] VITALS (10 sets, daily range): BP systolic 115–144; BP diastolic 54–84
[2018-09-04] MEDS: IV RINGERS,LACTATED 1000ML 1,000 ML IV SCH ×3 (07:00→16:52)
[~2018-09-04 08:04] MED LIST changes: +ACET500T68 PO; +CITA20TA6 PO; +HYDR-3135 PO; -HYDR-963 PO; +HYDROmorphone 2 MG/ML VIAL IV PRN; +LIDOCAINE 1% PF 2 ML VIAL. ID PRN; +LOSA-73 PO; +MORPHINE SULFATE 2 MG/ML VIAL. IV PRN; +PROCHLORPERAZINE 10 MG/2 ML VIAL. IV PRN; +ceFAZolin SODIUM 3 GM in IV DEXTROSE 5% 100ML 100 ML IV PRN; +fentaNYL PF VIAL 100 MCG/2 ML VIAL IV PRN
[2018-09-04] MEDS ORDERED: fentaNYL PF VIAL 100 MCG/2 ML VIAL ONE ×2 (09:20→11:26)
[2018-09-04] MEDS ORDERED: ROCURONIUM 50 MG/5 ML VIAL. ONE (09:20)
[2018-09-04] MEDS ORDERED: DESFLURANE 31 TO 60 MINUTES IH ONE (09:21)
[2018-09-04] MEDS ORDERED: LIDOCAINE 2% PF 5 ML VIAL. ONE ×2 (09:21→11:24)
[2018-09-04] MEDS ORDERED: DEXAMETHASONE SOD PHOS 20 MG/5 ML VIAL. ONE (09:21)
[2018-09-04] MEDS ORDERED: KETOROLAC 30 MG/ML INJ FOR OR. INJ ONE (09:21)
[2018-09-04] MEDS ORDERED: PROPOFOL 20 ML IV ONE ×2 (09:21→11:24)
[2018-09-04] MEDS ORDERED: ONDANSETRON PF 4 MG/2 ML VIAL. ONE (09:21)
[2018-09-04] MEDS ORDERED: BUPIVAC MPF-EPI 0.5%-1:200000 30 ML VIAL. ONE (09:24)
--- NOTE | 2018-09-04 09:59 | PDOC ---
SURGICAL PROGRESS NOTE Subjective Pre-Op Note 52 yo F with incisional hernia. Has had issues with pain and bowel changes. Concern for pending obstruction. CT images reviewed with pt and patient's . TO OR for repair with phasix mesh R/R/b/A d/w pt and pt's supportive . Risks, including, but not limited to: bleeding, infection, damage to surrounding structures, risk of anesthesia, risk of recurrence. She is specifically high risk, given morbid obesity and complicated surgery hx. They appear to understand, their questions are answered and they elect to proceed. Office note H&P reviewed and unchanged. Hernia marked out with pt. Vital Signs Vital Signs Date Time Temp Pulse Resp B/P (MAP) Pulse Ox O2 Delivery O2 Flow Rate FiO2 09/04/18 08:31 98.3 77 20 180/87 98 Room Air 98.3 LENY LECHUGA MD Sep 04, 2018 09:59
--- NOTE | 2018-09-04 11:28 | PDOC4 ---
OPERATIVE NOTE Date: Date: Sep 04, 2018 Pre-Op Diagnosis: Incisional hernia Post-Op Diagnosis: same Procedure Performed: Incisional hernia repair with phasix mesh Surgeon: Bobby Lechuga Anesthesia Type: GETA plus local Blood Loss: 50 Specimans Obtained: hernia sac, abd mass (suspect omental infarction Findings: Complicated incisional hernia with large amount of viscera (small bowel) extending into abdominal wall in RLQ, all viable Complications: none Operative Note: After obtaining informed consent, patient was taken to OR, induced under GETA and prepped in the usual fashion. Lower midline scar reopened with cautery. Subcutaneous tissue divided. Hernia sac immediately encountered and opened sharply. Large hernia sac with viscera extending into RLQ. All viscera viable and reduced into abdominal cavity. Small omental mass noted, excise with cautery and sent to pathology. Hernia sac excised using cautery and sent to pathology. Fascia closed with looped 0 PDS x 2 without significant tension. Phasix mesh onlay then placed over incision and tacked in place using multiple 0 vicryl sutures. Skin then repaired with 0 vicryl, 3 0 vicryl and 4 0 monocryl. Dressing placed as well as binder. Patient tolerated procedure well and sent to PACU in stable condition. All counts correct. No immediate complications. LENY LECHUGA MD Sep 04, 2018 11:28
[2018-09-04] MEDS ORDERED: 0.9 % SODIUM CHLORIDE 10 ML DISP.SYRIN. IV PRN (11:30)
[2018-09-04] MEDS ORDERED: ONDANSETRON PF 4 MG/2 ML VIAL. IV PRN (12:00)
[2018-09-04] MEDS: fentaNYL PF VIAL 100 MCG/2 ML VIAL IV PRN ×2 (12:32→13:16)
--- NOTE | 2018-09-04 13:46 | NUR ---
PT ORIENTED TO ROOM AND UNIT, BED LOW AND LOCKED, SIDE RAILS UP X3, CALL LIGHT IN REACH. WILL CONTINUE TO ASSESS.
--- NOTE | 2018-09-04 16:00 | NUR ---
Assumed pt care this time. Assisted to the bathroom. at bedside. Call light within reach.
[2018-09-04] MEDS ORDERED: DEXTROSE 50% 25 GM / 50ML DISP.SYRIN. IV PRN (16:30)
[2018-09-04] MEDS: HYDROcodone/APAP 5/325MG 1 TAB TABLET PO PRN ×2 (16:49→22:35)
--- NOTE | 2018-09-04 16:49 | PDOC2 ---
CONSULT Date of Consult Date of Consult DATE: 09/04/18 TIME: 16:43 Reason for Consult Reason for Consult: Diabetes Referring Physician Referring Physician: Dr Forbes Identification/Chief Complaint Chief Complaint Abdominal pain Source Source: Chart review, Patient History of Present Illness Reason for Visit: Patient is a 52 year old female who was admitted for a hernia repair. We were consulted for diabetes management but patietn relates to me that she sargent snot carry the diagnosis of diabetes since her last HBA1c by her primary care Dr Marks was below 5. Patient does not take medications other than for her generalized anxiety disorder, She denies polyuria polyphagia or polydipsia. Her only complaint during my interview is related to her surgical procedure earlier in the day. Patient denies nausea vomiting. NO headache no recent infections. Past Medical History Cardiovascular: HTN Psych: Anxiety Past Surgical History Past Surgical History: Hernia Repair, No pertinent history Family History Family History: Heart Disease, Hypertension Social History ALCOHOL: none Drugs: None Current Medications Current Medications Current Medications Fentanyl Citrate (Fentanyl 2ml Vial) 25 mcg PRN Q5MIN PRN IV MILD PAIN Last administered on 09/04/18at 13:16; Start 09/04/18 at 07:00; Stop 09/05/18 at 06:59 Fentanyl Citrate (Fentanyl 2ml Vial) 50 mcg PRN Q5MIN PRN IV MODERATE TO SEVERE PAIN; Start 09/04/18 at 07:00; Stop 09/05/18 at 06:59 Morphine Sulfate (Morphine Sulfate) 1 mg PRN Q10MIN PRN IV SEVERE PAIN; Start 09/04/18 at 07:00; Stop 09/05/18 at 06:59 Ringer's Solution 1,000 ml @ 30 mls/hr Q24H IV Last administered on 09/04/18at 12:33; Start 09/04/18 at 07:00; Stop 09/04/18 at 18:59 Lidocaine HCl (Xylocaine-Mpf 1% 2ml Vial) 2 ml PRN 1X PRN ID IV START; Start at 07:00; Stop 09/05/18 at 06:59 Hydromorphone HCl (Dilaudid) 0.5 mg PRN Q10MIN PRN IV SEV PAIN, Second choice; Start 09/04/18 at 07:00; Stop 09/05/18 at 06:59 Prochlorperazine Edisylate (Compazine) 5 mg PACU PRN PRN IV NAUSEA, MRX1; Start 09/04/18 at 07:00; Stop 09/05/18 at 06:59 Cefazolin Sodium 3 gm/Dextrose 100 ml @ 200 mls/hr 1X PREOP PRN IV PRIOR TO PROCEDURE Last administered on 09/04/18at 10:00; Start 09/04/18 at 06:00; Stop 09/04 at 15:00; Status DC Rocuronium [place] (Zemuron) 50 mg STK-MED ONCE .ROUTE ; Start 09/04/18 at 09:20 ; Stop 09/04/18 at 09:21; Status DC Fentanyl Citrate (Fentanyl 2ml Vial) 100 mcg STK-MED ONCE .ROUTE ; Start at 09:20; Stop 09/04/18 at 09:21; Status DC Desflurane (Suprane) 30 ml STK-MED ONCE IH ; Start 09/04/18 at 09:21; Stop at 09:22; Status DC Dexamethasone Sodium Phosphate (Decadron) 20 mg STK-MED ONCE .ROUTE ; Start 09/04 at 09:21; Stop 09/04/18 at 09:22; Status DC Ondansetron HCl (Zofran) 4 mg STK-MED ONCE .ROUTE ; Start 09/04/18 at 09:21; Stop 09/04/18 at 09:22; Status DC Lidocaine HCl (Lidocaine Pf 2% Vial) 5 ml STK-MED ONCE .ROUTE ; Start 09/04/18 at 09:21; Stop 09/04/18 at 09:22; Status DC Propofol 20 ml @ As Directed STK-MED ONCE IV ; Start 09/04/18 at 09:21; Stop 09/04 at 09:22; Status DC Ketorolac Tromethamine (Toradol For Or Only) 30 mg STK-MED ONCE INJ ; Start 09/04 at 09:21; Stop 09/04/18 at 09:22; Status DC Bupivacaine HCl/ Epinephrine Bitart (Sensorcain-Mpf Epi 0.5%-1:[id number]) 30 ml STK -MED ONCE .ROUTE Last administered on 09/04/18at 11:22; Start 09/04/18 at 09:24; Stop 09/04/18 at 09:25; Status DC Enoxaparin Sodium (Lovenox 40mg Syringe) 40 mg Q12H SQ ; Start 09/04/18 at 22:00 Sodium Chloride (Normal Saline Flush) 3 ml QSHIFT PRN IV AFTER MEDS AND BLOOD DRAWS; Start 09/04/18 at 11:30 Ringer's Solution 1,000 ml @ 100 mls/hr Q10H IV ; Start 09/04/18 at 15:00 Acetaminophen/ Hydrocodone Bitart (Lortab 5/325) 1 tab PRN Q4HRS PRN PO MILD PAIN; Start 09/04/18 at 12:00 Morphine Sulfate (Morphine Sulfate) 1 mg PRN Q1HR PRN IV PAIN; Start 09/04/18 at 12:00 Docusate Sodium (Colace) 100 mg BID PO ; Start 09/04/18 at 21:00 Ondansetron HCl (Zofran) 4 mg PRN Q6HRS PRN IV NAUESA, 1ST CHOICE; Start at 12:00 Lidocaine HCl (Lidocaine Pf 2% Vial) 5 ml STK-MED ONCE .ROUTE ; Start 09/04/18 at 11:24; Stop 09/04/18 at 11:25; Status DC Propofol 20 ml @ As Directed STK-MED ONCE IV ; Start 09/04/18 at 11:24; Stop 09/04 at 11:25; Status DC Fentanyl Citrate (Fentanyl 2ml Vial) 100 mcg STK-MED ONCE .ROUTE ; Start at 11:26; Stop 09/04/18 at 11:27; Status DC Insulin Human Lispro (HumaLOG) 0-5 UNITS TIDWMEALS SQ ; Start 09/04/18 at 17:00 Dextrose (Dextrose 50%-Water Syringe) 12.5 gm PRN Q15MIN PRN IV SEE COMMENTS; Start 09/04/18 at 16:30 Active Scripts Active Reported Citalopram Hbr (Citalopram Hydrobromide) 20 Mg Tablet 20 Mg PO DAILY Allergies Allergies: Coded Allergies: Sulfa (Sulfonamide Antibiotics) (Verified Allergy, Severe, Anaphylaxis, 09/04/18) coconut oil (Verified Allergy, Intermediate, Rash, 09/04/18) levofloxacin (Verified Allergy, Intermediate, Itching, 09/04/18) became flushed,short of breath,and itching piperacillin sodium (Verified Allergy, Intermediate, Rash, 09/04/18) tazobactam sodium (Verified Allergy, Intermediate, Rash, 09/04/18) vancomycin (Verified Allergy, Intermediate, Rash, 09/04/18) erythromycin base (Verified Adverse Reaction, Intermediate, Rash, 09/04/18) ROS General: No: Chills, Night Sweats, Fatigue, Malaise, Appetite, Other PSYCHOLOGICAL ROS: No: Anxiety, Behavioral Disorder, Concentration difficultie , Decreased libido, Depression, Disorientation, Hallucinations, Hostility, Irritablity, Memory difficulties, Mood Swings, Obsessive thoughts, Physical abuse, Sexual abuse, Sleep disturbances, Suicidal ideation, Other Eyes: No Blurry vision, No Decreased vision, No Double vision, No Dry eyes, No Excessive tearing, No Eye Pain, No Itchy Eyes, No Loss of vision, No Photophobia , No Scotomata, No Uses contacts, No Uses glasses, No Other HEENT: No: Heacaches, Visual Changes, Hearing change, Nasal congestion, Nasal discharge, Oral lesions, Sinus pain, Sore Throat, Epistaxis, Sneezing, Snoring, Tinnitus, Vertigo, Vocal changes, Other ALLERGY AND IMMUNOLOGY: No: Hives, Insect Bite Sensitivity, Itchy/Watery Eyes, Nasal Congestion, Post Nasal Drip, Seasonal Allergies, Other Hematological and Lymphatic: No: Bleeding Problems, Blood Clots, Blood Transfusions, Brusing, Night Sweats, Pallor, Swollen Lymph Nodes, Other ENDOCRINE: No: Breast Changes, Galactorrhea, Hair Pattern Changes, Hot Flashes , Malaise/lethargy, Mood Swings, Palpitations, Polydipsia/polyuria, Skin Changes , Temperature Intolerance, Unexpected Weight Changes, Other Breast: No New/Changing Breast Lumps, No Nipple changes, No Nipple discharge, No Other Respiratory: No: Cough, Hemoptysis, Orthopnea, Pleuritic Pain, Shortness of breath, SOB with excertion, Sputum Changes, Stridor, Tachypnea, Wheezing, Other Cardiovascular: No Chest Pain, No Palpitations, No Orthopnea, No Paroxysmal Noc. Dyspnea, No Edema, No Lt Headedness, No Other Gastrointestinal: No Nausea, No Vomiting, No Abdominal Pain, No Diarrhea, No Constipation, No Melena, No Hematochezia, No Other Genitourinary: No Dysuria, No Frequency, No Incontinence, No Hematuria, No Retention, No Discharge, No Urgency, No Pain, No Flank Pain, No Other, No , No , No , No , No , No , No Musculoskeletal: No Gait Disturbance, No Joint Pain, No Joint Stiffness, No Joint Swelling, No Muscle Pain, No Muscular Weakness, No Pain In:, No Swelling In:, No Other Neurological: No Behavorial Changes, No Bowel/Bladder ControlChng, No Confusion , No Dizziness, No Gait Disturbance, No Headaches, No Impaired Coord/balance, No Memory Loss, No Numbness/Tingling, No Seizures, No Speech Problems, No Tremors, No Visual Changes, No Weakness, No Other Skin: No Dry Skin, No Eczema, No Hair Changes, No Lumps, No Mole Changes, No Mottling, No Nail Changes, No Pruritus, No Rash, No Skin Lesion Changes, No Other, No Acne Physical Exam General: Alert, Oriented X3, Cooperative, No acute distress HEENT: Atraumatic, PERRLA, EOMI Lungs: Clear to auscultation, Normal air movement Heart: Regular rate, Normal S1, Normal S2 Abdomen: Soft, No masses Extremities: No clubbing, No cyanosis Skin: No rashes, No breakdown Psych/Mental Status: Mental status NL, Mood NL Vitals VITALS Vital Signs Date Time Temp Pulse Resp B/P (MAP) Pulse Ox O2 Delivery O2 Flow Rate FiO2 09/04/18 15:46 98.1 78 144/65 (91) 98 Nasal Cannula 2.0 98.1 09/04/18 15:30 18 Assessment/Plan Assessment/Plan s/p herniorrhaphy history of diabetes but patient no longer carries the diagnosis history of hypertension diet controlled CHOLO compensated Recommendations: follow up with primary care physician in the outpatient setting continue home meds we will sign off at the present time in the absence of medical issues at hand thank you for the consultation please reconsult as needed. CHAR BARNES MD Sep 04, 2018 16:49
[2018-09-04] MEDS ORDERED: INSULIN LISPRO 300 UNITS/3 ML INSULN.PEN. SQ SCH (17:00)
--- NOTE | 2018-09-04 17:22 | RAD ---
EXAM: Supine AP view of the abdomen DATE: 09/04/2018 12:00 AM INDICATION: POST OP KUB IN OR, POST HERNIA REPAIR, ALL POST OP COUNTS REPORTED CORRECT PER OR ROOM. COMPARISON: 02/01/2017 AP abdomen FINDINGS/ IMPRESSION: Intraoperative AP view of the abdomen demonstrates no evidence for unexpected retained radiopaque foreign body. Radiopaque densities projecting over the midline abdomen are unchanged to 02/01/2017. Moderate colonic stool content is seen. Of note, this single view excludes portions of the bilateral flanks and in the upper abdomen, diaphragms are not visualized. Electronically signed by: Holland Agarwal MD (09/04/2018 5:19 PM) [facility]
[2018-09-04] MEDS: MORPHINE SULFATE 2 MG/ML VIAL. IV PRN ×2 (17:58→22:36)
[2018-09-04] MEDS: DOCUSATE SODIUM 100 MG CAPSULE. PO SCH (22:35)
[2018-09-04] MEDS: ENOXAPARIN 40 MG/0.4 ML SYRINGE. SQ SCH (22:35)
[2018-09-05] MEDS: IV RINGERS,LACTATED 1000ML 1,000 ML IV SCH ×3 (01:00→21:00)
[2018-09-05 03:06] VITALS: BP 116/57
[2018-09-05 05:40] LABS: BASO % 0 % (0-3); EOS % 0 % (0-3); HEMATOCRIT 33.9 % (36.0-47.0); LYMPH # 0.8 x10^3/uL (1.0-4.8); LYMPH % 10 % (24-48); MEAN CORPUSCULAR HEMOGLOBIN 26 pg (25-35); MEAN CORPUSCULAR HGB CONC 33 g/dL (31-37); MEAN CORPUSCULAR VOLUME 80 fL (79-100); MONO # 0.7 x10^3/uL (0.0-1.1); MONO % 8 % (0-9); NEUT # 6.9 x10^3uL (1.8-7.7); NEUT % 82 % (31-73); PLATELET COUNT 140 x10^3/uL (140-400); RED BLOOD COUNT 4.25 x10^6/uL (3.50-5.40); RED CELL DISTRIBUTION WIDTH 15.8 % (11.5-14.5); WHITE BLOOD COUNT 8.5 x10^3/uL (4.0-11.0)
[2018-09-05] MEDS: MORPHINE SULFATE 2 MG/ML VIAL. IV PRN ×2 (06:14→12:38)
[2018-09-05 07:00] VITALS: BP 101/62
--- NOTE | 2018-09-05 07:54 | NUR ---
Dr. Mei consulted for diabetes.
--- NOTE | 2018-09-05 08:21 | PDOC ---
PROGRESS NOTES Chief Complaint Chief Complaint s/p herniorrhaphy history of diabetes but patient no longer carries the diagnosis history of hypertension diet controlled CHOLO compensated THI on CPAP History of Present Illness History of Present Illness 52 year old female who was admitted for a hernia repair. We were consulted for diabetes management but milagro relates to me that she sargent snot carry the diagnosis of diabetes since her last HBA1c by her primary care Dr Marks was below 5. Patient does not take medications other than for her generalized anxiety disorder, She denies polyuria polyphagia or polydipsia. Her only complaint during my interview is related to her surgical procedure 3 in the day. Feeling ok today. On ROS she did have some SOB overnight and notes she has THI, but has CPAP mask difficulties at home. I offered for RT come check on her. Plan: D/c per surgery. CPAP QHS per RT to see Vitals Vitals Vital Signs Date Time Temp Pulse Resp B/P (MAP) Pulse Ox O2 Delivery O2 Flow Rate FiO2 09/05/18 07:00 98.1 62 18 101/62 (75) 94 Room Air 98.1 09/04/18 15:46 2.0 Physical Exam General: Alert, Oriented X3, Cooperative, No acute distress Heart: Regular rate, Normal S1, Normal S2 Abdomen: Soft, No masses Extremities: No clubbing, No cyanosis Skin: No rashes, No breakdown Labs LABS Laboratory Tests Test 09/05/18 04:45 White Blood Count 8.5 x10^3/uL (4.0-11.0) Red Blood Count 4.25 x10^6/uL (3.50-5.40) Hemoglobin 11.0 g/dL (12.0-15.5) Hematocrit 33.9 % (36.0-47.0) Mean Corpuscular Volume 80 fL (79-100) Mean Corpuscular Hemoglobin 26 pg (25-35) Mean Corpuscular Hemoglobin Concent 33 g/dL (31-37) Red Cell Distribution Width 15.8 % (11.5-14.5) Platelet Count 140 x10^3/uL (140-400) Neutrophils (%) (Auto) 82 % (31-73) Lymphocytes (%) (Auto) 10 % (24-48) Monocytes (%) (Auto) 8 % (0-9) Eosinophils (%) (Auto) 0 % (0-3) Basophils (%) (Auto) 0 % (0-3) Neutrophils # (Auto) 6.9 x10^3uL (1.8-7.7) Lymphocytes # (Auto) 0.8 x10^3/uL (1.0-4.8) Monocytes # (Auto) 0.7 x10^3/uL (0.0-1.1) Eosinophils # (Auto) 0.0 x10^3/uL (0.0-0.7) Basophils # (Auto) 0.0 x10^3/uL (0.0-0.2) Comment Review of Relevant I have reviewed the following items lillian (where applicable) has been applied. Labs Laboratory Tests Test 09/05/18 04:45 White Blood Count 8.5 x10^3/uL (4.0-11.0) Red Blood Count 4.25 x10^6/uL (3.50-5.40) Hemoglobin 11.0 g/dL (12.0-15.5) Hematocrit 33.9 % (36.0-47.0) Mean Corpuscular Volume 80 fL (79-100) Mean Corpuscular Hemoglobin 26 pg (25-35) Mean Corpuscular Hemoglobin Concent 33 g/dL (31-37) Red Cell Distribution Width 15.8 % (11.5-14.5) Platelet Count 140 x10^3/uL (140-400) Neutrophils (%) (Auto) 82 % (31-73) Lymphocytes (%) (Auto) 10 % (24-48) Monocytes (%) (Auto) 8 % (0-9) Eosinophils (%) (Auto) 0 % (0-3) Basophils (%) (Auto) 0 % (0-3) Neutrophils # (Auto) 6.9 x10^3uL (1.8-7.7) Lymphocytes # (Auto) 0.8 x10^3/uL (1.0-4.8) Monocytes # (Auto) 0.7 x10^3/uL (0.0-1.1) Eosinophils # (Auto) 0.0 x10^3/uL (0.0-0.7) Basophils # (Auto) 0.0 x10^3/uL (0.0-0.2) Laboratory Tests Test 09/05/18 04:45 White Blood Count 8.5 x10^3/uL (4.0-11.0) Red Blood Count 4.25 x10^6/uL (3.50-5.40) Hemoglobin 11.0 g/dL (12.0-15.5) Hematocrit 33.9 % (36.0-47.0) Mean Corpuscular Volume 80 fL (79-100) Mean Corpuscular Hemoglobin 26 pg (25-35) Mean Corpuscular Hemoglobin Concent 33 g/dL (31-37) Red Cell Distribution Width 15.8 % (11.5-14.5) Platelet Count 140 x10^3/uL (140-400) Neutrophils (%) (Auto) 82 % (31-73) Lymphocytes (%) (Auto) 10 % (24-48) Monocytes (%) (Auto) 8 % (0-9) Eosinophils (%) (Auto) 0 % (0-3) Basophils (%) (Auto) 0 % (0-3) Neutrophils # (Auto) 6.9 x10^3uL (1.8-7.7) Lymphocytes # (Auto) 0.8 x10^3/uL (1.0-4.8) Monocytes # (Auto) 0.7 x10^3/uL (0.0-1.1) Eosinophils # (Auto) 0.0 x10^3/uL (0.0-0.7) Basophils # (Auto) 0.0 x10^3/uL (0.0-0.2) Medications Current Medications Fentanyl Citrate (Fentanyl 2ml Vial) 25 mcg PRN Q5MIN PRN IV MILD PAIN Last administered on 09/04/18at 13:16; Start 09/04/18 at 07:00; Stop 09/05/18 at 06:59; Status DC Fentanyl Citrate (Fentanyl 2ml Vial) 50 mcg PRN Q5MIN PRN IV MODERATE TO SEVERE PAIN; Start 09/04/18 at 07:00; Stop 09/05/18 at 06:59; Status DC Morphine Sulfate (Morphine Sulfate) 1 mg PRN Q10MIN PRN IV SEVERE PAIN; Start 09/04/18 at 07:00; Stop 09/05/18 at 06:59; Status DC Ringer's Solution 1,000 ml @ 30 mls/hr Q24H IV Last administered on 09/04/18at 12:33; Start 09/04/18 at 07:00; Stop 09/04/18 at 18:59; Status DC Lidocaine HCl (Xylocaine-Mpf 1% 2ml Vial) 2 ml PRN 1X PRN ID IV START; Start at 07:00; Stop 09/05/18 at 06:59; Status DC Hydromorphone HCl (Dilaudid) 0.5 mg PRN Q10MIN PRN IV SEV PAIN, Second choice; Start 09/04/18 at 07:00; Stop 09/05/18 at 06:59; Status DC Prochlorperazine Edisylate (Compazine) 5 mg PACU PRN PRN IV NAUSEA, MRX1; Start 09/04/18 at 07:00; Stop 09/05/18 at 06:59; Status DC Cefazolin Sodium 3 gm/Dextrose 100 ml @ 200 mls/hr 1X PREOP PRN IV PRIOR TO PROCEDURE Last administered on 09/04/18at 10:00; Start 09/04/18 at 06:00; Stop 09/04 at 15:00; Status DC Rocuronium [place] (Zemuron) 50 mg STK-MED ONCE .ROUTE ; Start 09/04/18 at 09:20 ; Stop 09/04/18 at 09:21; Status DC Fentanyl Citrate (Fentanyl 2ml Vial) 100 mcg STK-MED ONCE .ROUTE ; Start at 09:20; Stop 09/04/18 at 09:21; Status DC Desflurane (Suprane) 30 ml STK-MED ONCE IH ; Start 09/04/18 at 09:21; Stop at 09:22; Status DC Dexamethasone Sodium Phosphate (Decadron) 20 mg STK-MED ONCE .ROUTE ; Start 09/04 at 09:21; Stop 09/04/18 at 09:22; Status DC Ondansetron HCl (Zofran) 4 mg STK-MED ONCE .ROUTE ; Start 09/04/18 at 09:21; Stop 09/04/18 at 09:22; Status DC Lidocaine HCl (Lidocaine Pf 2% Vial) 5 ml STK-MED ONCE .ROUTE ; Start 09/04/18 at 09:21; Stop 09/04/18 at 09:22; Status DC Propofol 20 ml @ As Directed STK-MED ONCE IV ; Start 09/04/18 at 09:21; Stop 09/04 at 09:22; Status DC Ketorolac Tromethamine (Toradol For Or Only) 30 mg STK-MED ONCE INJ ; Start 09/04 at 09:21; Stop 09/04/18 at 09:22; Status DC Bupivacaine HCl/ Epinephrine Bitart (Sensorcain-Mpf Epi 0.5%-1:[id number]) 30 ml STK -MED ONCE .ROUTE Last administered on 09/04/18at 11:22; Start 09/04/18 at 09:24; Stop 09/04/18 at 09:25; Status DC Enoxaparin Sodium (Lovenox 40mg Syringe) 40 mg Q12H SQ Last administered on 09/04at 22:35; Start 09/04/18 at 22:00 Sodium Chloride (Normal Saline Flush) 3 ml QSHIFT PRN IV AFTER MEDS AND BLOOD DRAWS; Start 09/04/18 at 11:30 Ringer's Solution 1,000 ml @ 100 mls/hr Q10H IV Last administered on 09/04/18at 16:52; Start 09/04/18 at 15:00 Acetaminophen/ Hydrocodone Bitart (Lortab 5/325) 1 tab PRN Q4HRS PRN PO MILD PAIN Last administered on 09/04/18at 22:35; Start 09/04/18 at 12:00 Morphine Sulfate (Morphine Sulfate) 1 mg PRN Q1HR PRN IV PAIN Last administered on 09/05/18at 06:14; Start 09/04/18 at 12:00 Docusate Sodium (Colace) 100 mg BID PO Last administered on 09/04/18at 22:35; Start 09/04/18 at 21:00 Ondansetron HCl (Zofran) 4 mg PRN Q6HRS PRN IV NAUESA, 1ST CHOICE; Start at 12:00 Lidocaine HCl (Lidocaine Pf 2% Vial) 5 ml STK-MED ONCE .ROUTE ; Start 09/04/18 at 11:24; Stop 09/04/18 at 11:25; Status DC Propofol 20 ml @ As Directed STK-MED ONCE IV ; Start 09/04/18 at 11:24; Stop 09/04 at 11:25; Status DC Fentanyl Citrate (Fentanyl 2ml Vial) 100 mcg STK-MED ONCE .ROUTE ; Start at 11:26; Stop 09/04/18 at 11:27; Status DC Insulin Human Lispro (HumaLOG) 0-5 UNITS TIDWMEALS SQ ; Start 09/04/18 at 17:00; Stop 09/04/18 at 17:00; Status DC Dextrose (Dextrose 50%-Water Syringe) 12.5 gm PRN Q15MIN PRN IV SEE COMMENTS; Start 09/04/18 at 16:30; Stop 09/04/18 at 16:43; Status DC Active Scripts Active Reported Citalopram Hbr (Citalopram Hydrobromide) 20 Mg Tablet 20 Mg PO DAILY Vitals/I & O Vital Sign - Last 24 Hours 09/04/18 09/04/18 09/04/18 09/04/18 08:28 08:31 11:41 11:41 Temp 98.3 98.3 97.3 98.3 98.3 97.3 Pulse 77 77 102 Resp 20 20 20 B/P (MAP) 180/87 163/75 Pulse Ox 98 98 99 O2 Delivery Room Air Simple Mask O2 Flow Rate 10 10 09/04/18 09/04/18 09/04/18 09/04/18 11:56 12:11 12:26 12:32 Pulse 86 68 61 Resp 20 20 20 20 B/P (MAP) 158/70 128/54 130/54 Pulse Ox 100 96 97 O2 Delivery Simple Mask Nasal Cannula Nasal Cannula Nasal Cannula O2 Flow Rate 10 2 2 2.0 09/04/18 09/04/18 09/04/18 09/04/18 12:41 12:56 13:11 13:16 Temp 97.6 97.6 Pulse 82 73 82 Resp 20 20 20 20 B/P (MAP) 114/48 130/54 128/56 Pulse Ox 98 99 97 97 O2 Delivery Nasal Cannula Nasal Cannula Nasal Cannula Nasal Cannula O2 Flow Rate 2 2 2 2.0 09/04/18 09/04/18 09/04/18 09/04/18 15:00 15:15 15:15 15:16 Temp 98.1 98.1 98.1 98.1 Pulse 71 85 95 Resp 18 18 18 B/P (MAP) 125/71 (89) 130/70 (90) 125/71 (89) Pulse Ox 98 98 98 98 O2 Delivery Nasal Cannula Nasal Cannula Room Air Nasal Cannula O2 Flow Rate 2.0 2.0 2.0 09/04/18 09/04/18 09/04/18 09/04/18 15:30 15:30 15:45 15:46 Temp 98.1 98.1 98.1 98.1 Pulse 77 63 66 78 Resp 18 B/P (MAP) 140/66 (90) 131/84 (100) 140/66 (90) 144/65 (91) Pulse Ox 98 94 97 98 O2 Delivery Nasal Cannula Room Air Room Air Nasal Cannula O2 Flow Rate 2.0 2.0 09/04/18 09/04/18 09/04/18 09/04/18 16:00 16:15 16:49 17:15 Pulse 66 64 73 B/P (MAP) 132/80 (97) 124/73 (90) 132/69 (90) Pulse Ox 99 94 94 O2 Delivery Room Air Room Air Room Air 09/04/18 09/04/18 09/04/18 09/04/18 17:58 19:15 20:00 22:35 Temp 97.2 97.2 Pulse 74 Resp 18 18 B/P (MAP) 120/54 (76) Pulse Ox 94 O2 Delivery Room Air Room Air Room Air Room Air 09/04/18 09/04/18 09/04/18 09/05/18 22:36 22:53 23:35 03:06 Temp 97.9 97.8 97.9 97.8 Pulse 69 58 Resp 18 18 18 18 B/P (MAP) 115/54 (74) 116/57 (76) Pulse Ox 93 95 O2 Delivery Room Air Room Air Room Air Room Air 09/05/18 09/05/18 09/05/18 06:14 06:44 07:00 Temp 98.1 98.1 Pulse 62 Resp 18 18 18 B/P (MAP) 101/62 (75) Pulse Ox 94 O2 Delivery Room Air Room Air Room Air Intake and Output 09/04/18 09/04/18 09/05/18 14:59 22:59 06:59 Intake Total 1400 ml 690 ml 480 ml Output Total 175 ml Balance 1225 ml 690 ml 480 ml RIFFEL,CHRISTOPHER S MD Sep 05, 2018 08:21
--- NOTE | 2018-09-05 08:30 | PDOC ---
SURGICAL PROGRESS NOTE Subjective Pt with c/o incisional pain, no N/V, tigre clears Vital Signs Vital Signs Date Time Temp Pulse Resp B/P (MAP) Pulse Ox O2 Delivery O2 Flow Rate FiO2 09/05/18 07:00 98.1 62 18 101/62 (75) 94 Room Air 98.1 09/04/18 15:46 2.0 I&O Intake and Output 09/05/18 07:00 Intake Total 2570 ml Output Total 175 ml Balance 2395 ml Intake Oral 1170 ml IV Total 1400 ml Output Urine Total 150 ml Estimated Blood Loss 25 ml # Voids 3 PATIENT HAS A NORTON: No General: Alert, Oriented X3, Cooperative, No acute distress Abdomen: Soft, Other (RLQ TTP) Labs Laboratory Tests Test 09/05/18 04:45 White Blood Count 8.5 x10^3/uL (4.0-11.0) Red Blood Count 4.25 x10^6/uL (3.50-5.40) Hemoglobin 11.0 g/dL (12.0-15.5) Hematocrit 33.9 % (36.0-47.0) Mean Corpuscular Volume 80 fL (79-100) Mean Corpuscular Hemoglobin 26 pg (25-35) Mean Corpuscular Hemoglobin Concent 33 g/dL (31-37) Red Cell Distribution Width 15.8 % (11.5-14.5) Platelet Count 140 x10^3/uL (140-400) Neutrophils (%) (Auto) 82 % (31-73) Lymphocytes (%) (Auto) 10 % (24-48) Monocytes (%) (Auto) 8 % (0-9) Eosinophils (%) (Auto) 0 % (0-3) Basophils (%) (Auto) 0 % (0-3) Neutrophils # (Auto) 6.9 x10^3uL (1.8-7.7) Lymphocytes # (Auto) 0.8 x10^3/uL (1.0-4.8) Monocytes # (Auto) 0.7 x10^3/uL (0.0-1.1) Eosinophils # (Auto) 0.0 x10^3/uL (0.0-0.7) Basophils # (Auto) 0.0 x10^3/uL (0.0-0.2) Laboratory Tests Test 09/05/18 04:45 White Blood Count 8.5 x10^3/uL (4.0-11.0) Red Blood Count 4.25 x10^6/uL (3.50-5.40) Hemoglobin 11.0 g/dL (12.0-15.5) Hematocrit 33.9 % (36.0-47.0) Mean Corpuscular Volume 80 fL (79-100) Mean Corpuscular Hemoglobin 26 pg (25-35) Mean Corpuscular Hemoglobin Concent 33 g/dL (31-37) Red Cell Distribution Width 15.8 % (11.5-14.5) Platelet Count 140 x10^3/uL (140-400) Neutrophils (%) (Auto) 82 % (31-73) Lymphocytes (%) (Auto) 10 % (24-48) Monocytes (%) (Auto) 8 % (0-9) Eosinophils (%) (Auto) 0 % (0-3) Basophils (%) (Auto) 0 % (0-3) Neutrophils # (Auto) 6.9 x10^3uL (1.8-7.7) Lymphocytes # (Auto) 0.8 x10^3/uL (1.0-4.8) Monocytes # (Auto) 0.7 x10^3/uL (0.0-1.1) Eosinophils # (Auto) 0.0 x10^3/uL (0.0-0.7) Basophils # (Auto) 0.0 x10^3/uL (0.0-0.2) Problem List s/p hernia repair ADAT pain control plan d/c home in AM, if pain improves LENY LECHUGA MD Sep 05, 2018 08:30
[2018-09-05] MEDS: DOCUSATE SODIUM 100 MG CAPSULE. PO SCH ×2 (09:29→21:57)
[2018-09-05] MEDS: HYDROcodone/APAP 5/325MG 1 TAB TABLET PO PRN ×3 (09:29→19:50)
[2018-09-05] MEDS: ENOXAPARIN 40 MG/0.4 ML SYRINGE. SQ SCH ×2 (09:33→21:57)
[2018-09-05 10:34] LABS: PLT ESTIMATE ADEQUATE (ADEQUATE)
[2018-09-05 10:35] LABS: ANISOCYTOSIS SLIGHT
--- NOTE | 2018-09-05 10:37 | NUR ---
SW following. Discussed with RN, pt is from home. RN advised no SW needs. SW will continue to follow.
[2018-09-05 11:00] VITALS: BP 125/65
[2018-09-05 15:00] VITALS: BP 122/49
--- NOTE | 2018-09-05 17:07 | PATHOLOGY ---
[facility] Accession Number: [id number] . 01 Material submitted: . PART A: ABDOMINAL MASS PART B: HERNIA SAC . 02 Diagnosis: A. Segment of focal mesothelial-lined fibroadipose tissue, omental mass: - Focal submesothelial reactive fibrosis and congestion. . B. Segment of focal mesothelial-lined fibromembranous and fibroadipose tissue, incisional hernia repair: - Hernia sac showing focal reactive mesothelial hyperplasia and chronic inflammation, submesothelial reactive fibrosis, and focal dense scarring. . (JPM:eddie; 09/05/2018) MBR/09/05/2018 . 02 Electronically signed: . Hank Love MD, Pathologist NPI- [id number] . 01 Gross description: . A. The specimen is received in formalin, labeled "[place]ina, Wilma, abdominal mass", is a yellow lobulated adipose tissue partially covered by a thin lane-white membrane measuring 6.8 x 2.5 x 0.5 cm with attached lane-purple cylindrical segment measuring 1.0 x 0.5 x 0.5 cm. No discrete nodules are masses identified. Envelope Patternmaker tissue is submitted in A1. . B. The specimen is received in formalin, labeled "Figueroa, Wilma, hernia sac", is a fibromembranous segment with attached fibroadipose tissue measuring 15 x 11.0 with an average 0.5 cm thickness. There are few areas of fibrous thickening. Envelope Patternmaker tissue is submitted in B1-B5. ([facility]; 09/04/2018) SHS/SHS . 02 Pathologist provided ICD-10: R19.00, K43.2 . 02 CPT . 042798, 844614 Specimen Comment: A courtesy copy of this report has been sent to Specimen Comment: [phone], . Specimen Comment: Report sent to / DR MACDONALD Specimen Comment: A duplicate report has been generated due to demographic updates. Performed at: 01 [facility] [address] [id number] MD Cesar Hernandez MD Phone: [phone] Performed at: 02 [facility] [address] [place], [place] [id number] MD Hank Love MD Phone: [phone]
[2018-09-05 19:00] VITALS: BP 127/67
[2018-09-05 23:00] VITALS: BP 140/71
[2018-09-06] MEDS: HYDROcodone/APAP 5/325MG 1 TAB TABLET PO PRN ×3 (00:18→10:27)
[2018-09-06 03:00] VITALS: BP 130/62
[2018-09-06 07:00] VITALS: BP 138/72
[2018-09-06] MEDS: IV RINGERS,LACTATED 1000ML 1,000 ML IV SCH (07:00)
--- NOTE | 2018-09-06 07:45 | PDOC ---
PROGRESS NOTES Chief Complaint Chief Complaint s/p herniorrhaphy history of diabetes but patient no longer carries the diagnosis history of hypertension diet controlled CHOLO compensated THI on CPAP History of Present Illness History of Present Illness 52 year old female who was admitted for a hernia repair. We were consulted for diabetes management but milagro relates to me that she sargent snot carry the diagnosis of diabetes since her last HBA1c by her primary care Dr Marks was below 5. Patient does not take medications other than for her generalized anxiety disorder, She denies polyuria polyphagia or polydipsia. Her only complaint during my interview is related to her surgical procedure 3 in the day. Feeling ok today. On ROS she did have some SOB overnight and notes she has THI, but has CPAP mask difficulties at home. I offered for RT come check on her. Plan: D/c per surgery later today Should have home mask fitting and CPAP titration outpatient Vitals Vitals Vital Signs Date Time Temp Pulse Resp B/P (MAP) Pulse Ox O2 Delivery O2 Flow Rate FiO2 09/06/18 07:00 97.6 59 18 138/72 (94) 94 97.6 09/06/18 06:04 Room Air Physical Exam General: Alert, Oriented X3, Cooperative, No acute distress Heart: Regular rate, Normal S1, Normal S2 Abdomen: Soft, Other (RLQ TTP) Extremities: No clubbing, No cyanosis Skin: No rashes, No breakdown Comment Review of Relevant I have reviewed the following items lillian (where applicable) has been applied. Labs Laboratory Tests Test 09/05/18 04:45 White Blood Count 8.5 x10^3/uL (4.0-11.0) Red Blood Count 4.25 x10^6/uL (3.50-5.40) Hemoglobin 11.0 g/dL (12.0-15.5) Hematocrit 33.9 % (36.0-47.0) Mean Corpuscular Volume 80 fL (79-100) Mean Corpuscular Hemoglobin 26 pg (25-35) Mean Corpuscular Hemoglobin Concent 33 g/dL (31-37) Red Cell Distribution Width 15.8 % (11.5-14.5) Platelet Count 140 x10^3/uL (140-400) Neutrophils (%) (Auto) 82 % (31-73) Lymphocytes (%) (Auto) 10 % (24-48) Monocytes (%) (Auto) 8 % (0-9) Eosinophils (%) (Auto) 0 % (0-3) Basophils (%) (Auto) 0 % (0-3) Neutrophils # (Auto) 6.9 x10^3uL (1.8-7.7) Lymphocytes # (Auto) 0.8 x10^3/uL (1.0-4.8) Monocytes # (Auto) 0.7 x10^3/uL (0.0-1.1) Eosinophils # (Auto) 0.0 x10^3/uL (0.0-0.7) Basophils # (Auto) 0.0 x10^3/uL (0.0-0.2) Platelet Estimate Adequate (ADEQUATE) Large Platelets Few Giant Platelets Occ Anisocytosis Slight Medications Current Medications Fentanyl Citrate (Fentanyl 2ml Vial) 25 mcg PRN Q5MIN PRN IV MILD PAIN Last administered on 09/04/18at 13:16; Start 09/04/18 at 07:00; Stop 09/05/18 at 06:59; Status DC Fentanyl Citrate (Fentanyl 2ml Vial) 50 mcg PRN Q5MIN PRN IV MODERATE TO SEVERE PAIN; Start 09/04/18 at 07:00; Stop 09/05/18 at 06:59; Status DC Morphine Sulfate (Morphine Sulfate) 1 mg PRN Q10MIN PRN IV SEVERE PAIN; Start 09/04/18 at 07:00; Stop 09/05/18 at 06:59; Status DC Ringer's Solution 1,000 ml @ 30 mls/hr Q24H IV Last administered on 09/04/18at 12:33; Start 09/04/18 at 07:00; Stop 09/04/18 at 18:59; Status DC Lidocaine HCl (Xylocaine-Mpf 1% 2ml Vial) 2 ml PRN 1X PRN ID IV START; Start at 07:00; Stop 09/05/18 at 06:59; Status DC Hydromorphone HCl (Dilaudid) 0.5 mg PRN Q10MIN PRN IV SEV PAIN, Second choice; Start 09/04/18 at 07:00; Stop 09/05/18 at 06:59; Status DC Prochlorperazine Edisylate (Compazine) 5 mg PACU PRN PRN IV NAUSEA, MRX1; Start 09/04/18 at 07:00; Stop 09/05/18 at 06:59; Status DC Cefazolin Sodium 3 gm/Dextrose 100 ml @ 200 mls/hr 1X PREOP PRN IV PRIOR TO PROCEDURE Last administered on 09/04/18at 10:00; Start 09/04/18 at 06:00; Stop 09/04 at 15:00; Status DC Rocuronium [place] (Zemuron) 50 mg STK-MED ONCE .ROUTE ; Start 09/04/18 at 09:20 ; Stop 09/04/18 at 09:21; Status DC Fentanyl Citrate (Fentanyl 2ml Vial) 100 mcg STK-MED ONCE .ROUTE ; Start at 09:20; Stop 09/04/18 at 09:21; Status DC Desflurane (Suprane) 30 ml STK-MED ONCE IH ; Start 09/04/18 at 09:21; Stop at 09:22; Status DC Dexamethasone Sodium Phosphate (Decadron) 20 mg STK-MED ONCE .ROUTE ; Start 09/04 at 09:21; Stop 09/04/18 at 09:22; Status DC Ondansetron HCl (Zofran) 4 mg STK-MED ONCE .ROUTE ; Start 09/04/18 at 09:21; Stop 09/04/18 at 09:22; Status DC Lidocaine HCl (Lidocaine Pf 2% Vial) 5 ml STK-MED ONCE .ROUTE ; Start 09/04/18 at 09:21; Stop 09/04/18 at 09:22; Status DC Propofol 20 ml @ As Directed STK-MED ONCE IV ; Start 09/04/18 at 09:21; Stop 09/04 at 09:22; Status DC Ketorolac Tromethamine (Toradol For Or Only) 30 mg STK-MED ONCE INJ ; Start 09/04 at 09:21; Stop 09/04/18 at 09:22; Status DC Bupivacaine HCl/ Epinephrine Bitart (Sensorcain-Mpf Epi 0.5%-1:[id number]) 30 ml STK -MED ONCE .ROUTE Last administered on 09/04/18at 11:22; Start 09/04/18 at 09:24; Stop 09/04/18 at 09:25; Status DC Enoxaparin Sodium (Lovenox 40mg Syringe) 40 mg Q12H SQ Last administered on 09/05 21:57; Start 09/04/18 at 22:00 Sodium Chloride (Normal Saline Flush) 3 ml QSHIFT PRN IV AFTER MEDS AND BLOOD DRAWS; Start 09/04/18 at 11:30 Ringer's Solution 1,000 ml @ 100 mls/hr Q10H IV Last administered on 09/04/18at 16:52; Start 09/04/18 at 15:00 Acetaminophen/ Hydrocodone Bitart (Lortab 5/325) 1 tab PRN Q4HRS PRN PO MILD PAIN Last administered on 09/05/18 19:50; Start 09/04/18 at 12:00 Morphine Sulfate (Morphine Sulfate) 1 mg PRN Q1HR PRN IV PAIN Last administered on 09/05/18 12:38; Start 09/04/18 at 12:00 Docusate Sodium (Colace) 100 mg BID PO Last administered on 09/05/18 21:57; Start 09/04/18 at 21:00 Ondansetron HCl (Zofran) 4 mg PRN Q6HRS PRN IV NAUESA, 1ST CHOICE; Start at 12:00 Lidocaine HCl (Lidocaine Pf 2% Vial) 5 ml STK-MED ONCE .ROUTE ; Start 09/04/18 at 11:24; Stop 09/04/18 at 11:25; Status DC Propofol 20 ml @ As Directed STK-MED ONCE IV ; Start 09/04/18 at 11:24; Stop 09/04 at 11:25; Status DC Fentanyl Citrate (Fentanyl 2ml Vial) 100 mcg STK-MED ONCE .ROUTE ; Start at 11:26; Stop 09/04/18 at 11:27; Status DC Insulin Human Lispro (HumaLOG) 0-5 UNITS TIDWMEALS SQ ; Start 09/04/18 at 17:00; Stop 09/04/18 at 17:00; Status DC Dextrose (Dextrose 50%-Water Syringe) 12.5 gm PRN Q15MIN PRN IV SEE COMMENTS; Start 09/04/18 at 16:30; Stop 09/04/18 at 16:43; Status DC Acetaminophen/ Hydrocodone Bitart (Lortab 5/325) 2 tab PRN Q4HRS PRN PO MODERATE PAIN Last administered on 09/06/18at 06:04; Start 09/05/18 at 21:15 Active Scripts Active Reported Citalopram Hbr (Citalopram Hydrobromide) 20 Mg Tablet 20 Mg PO DAILY Vitals/I & O Vital Sign - Last 24 Hours 09/05/18 09/05/18 09/05/18 09/05/18 08:00 09:29 11:00 12:38 Temp 98.7 98.7 Pulse 66 Resp 16 16 16 B/P (MAP) 125/65 (85) Pulse Ox 95 O2 Delivery Room Air Room Air Room Air Room Air 09/05/18 09/05/18 09/05/18 09/05/18 13:06 14:07 15:00 19:00 Temp 97.9 98.2 97.9 98.2 Pulse 68 71 Resp 16 16 18 18 B/P (MAP) 122/49 (73) 127/67 (87) Pulse Ox 95 95 O2 Delivery Room Air Room Air Room Air Room Air 09/05/18 09/05/18 09/05/18 09/05/18 19:50 20:00 20:50 23:00 Temp 97.4 97.4 Pulse 64 Resp 18 20 18 B/P (MAP) 140/71 (94) Pulse Ox 96 O2 Delivery Room Air Room Air Room Air Room Air 09/06/18 09/06/18 09/06/18 09/06/18 00:18 01:18 03:00 06:04 Temp 97.6 97.6 Pulse 69 Resp 18 18 18 20 B/P (MAP) 130/62 (84) Pulse Ox 95 O2 Delivery Room Air Room Air Room Air Room Air 09/06/18 07:00 Temp 97.6 97.6 Pulse 59 Resp 18 B/P (MAP) 138/72 (94) Pulse Ox 94 Intake and Output 09/05/18 09/05/18 09/06/18 14:59 22:59 06:59 Intake Total 120 ml Balance 120 ml MONIQUE MIDDLETON MD Sep 06, 2018 07:45
[2018-09-06] MEDS ORDERED: HYDR-2761 PO (08:49)
--- NOTE | 2018-09-06 08:51 | DISCH ---
DISCHARGE INSTRUCTIONS Condition on Discharge Condition on Discharge: Stable Activity After Discharge Activity Instructions for Disc: Activity as tolerated Other activity instructions: wear abdominal binder Lifting Instructions after Dis: Do not lift >10 pounds Exercise Instruction after Dis: Progress as tolerated Driving Instructions after Dis: Do not drive (while taking pain medication) Diet after Discharge Diet after Discharge: Cardiac, Regular Wound Incision Care Wound/Incision Care: Change dressing, May get incision wet Contacting the [facility] after DC Call your doctor for: If your condition worsens Follow-Up Follow up with: Dr Forbes 1-2 weeks, call to schedule [phone] MARIE VALLE APRN Sep 06, 2018 08:51
--- NOTE | 2018-09-06 08:53 | PDOC ---
SURGICAL PROGRESS NOTE Subjective resting tolerating diet pain managed ambulating Vital Signs Vital Signs Date Time Temp Pulse Resp B/P (MAP) Pulse Ox O2 Delivery O2 Flow Rate FiO2 09/06/18 07:00 97.6 59 18 138/72 (94) 94 97.6 09/06/18 06:04 Room Air I&O Intake and Output 09/06/18 07:00 Intake Total 120 ml Balance 120 ml Intake Oral 120 ml # Voids 2 General: Alert, Oriented X3, Cooperative, No acute distress Abdomen: Soft, Other (incision c/d/i, no erythema ) Labs Laboratory Tests Test 09/05/18 04:45 White Blood Count 8.5 x10^3/uL (4.0-11.0) Red Blood Count 4.25 x10^6/uL (3.50-5.40) Hemoglobin 11.0 g/dL (12.0-15.5) Hematocrit 33.9 % (36.0-47.0) Mean Corpuscular Volume 80 fL (79-100) Mean Corpuscular Hemoglobin 26 pg (25-35) Mean Corpuscular Hemoglobin Concent 33 g/dL (31-37) Red Cell Distribution Width 15.8 % (11.5-14.5) Platelet Count 140 x10^3/uL (140-400) Neutrophils (%) (Auto) 82 % (31-73) Lymphocytes (%) (Auto) 10 % (24-48) Monocytes (%) (Auto) 8 % (0-9) Eosinophils (%) (Auto) 0 % (0-3) Basophils (%) (Auto) 0 % (0-3) Neutrophils # (Auto) 6.9 x10^3uL (1.8-7.7) Lymphocytes # (Auto) 0.8 x10^3/uL (1.0-4.8) Monocytes # (Auto) 0.7 x10^3/uL (0.0-1.1) Eosinophils # (Auto) 0.0 x10^3/uL (0.0-0.7) Basophils # (Auto) 0.0 x10^3/uL (0.0-0.2) Platelet Estimate Adequate (ADEQUATE) Large Platelets Few Giant Platelets Occ Anisocytosis Slight Assessment/Plan s/p IHR dc home today MARIE VALLE APRN Sep 06, 2018 08:53
[2018-09-06] MEDS: DOCUSATE SODIUM 100 MG CAPSULE. PO SCH (09:13)
[2018-09-06] MEDS: ENOXAPARIN 40 MG/0.4 ML SYRINGE. SQ SCH (09:14)
[2018-09-06 11:00] VITALS: BP 134/71
--- NOTE | 2018-09-06 11:46 | NUR ---
SW following. Discussed with RN, pt is discharging home today with self care. No further SW needs.
--- NOTE | 2018-09-06 14:30 | NUR ---
PT was discharged to home. PT left with spouse. PT verbalized understanding of wound care instructions. PT was walked to the main entrance.
--- NOTE | 2018-09-10 10:02 | PDOC3 ---
Discharge Summary Visit Information Date of Admission: Sep 04, 2018 Date of Discharge: Sep 06, 2018 Admitting Diagnosis: incisional hernia Final Diagnosis incisional hernia Brief Hospital Course Allergies Allergies Coded Allergies Type Severity Reaction Last Updated Verified Sulfa (Sulfonamide Antibiotics) Allergy Severe Anaphylaxis 09/04/18 Yes coconut oil Allergy Intermediate Rash 09/04/18 Yes levofloxacin Allergy Intermediate Itching 09/04/18 Yes piperacillin sodium Allergy Intermediate Rash 09/04/18 Yes tazobactam sodium Allergy Intermediate Rash 09/04/18 Yes vancomycin Allergy Intermediate Rash 09/04/18 Yes erythromycin base Adverse Reaction Intermediate Rash 09/04/18 Yes Brief Hospital Course Ms. Figueroa is a 52 old female who presented with incisional hernia. She underwent Incisional hernia repair with phasix mesh. Tolerating diet, ambulating and pain managed. Discharge Information Condition at Discharge: Stable Follow Up: Weeks (2) Disposition/Orders: D/C to Home Scheduled Citalopram Hydrobromide (Citalopram Hbr) 20 Mg Tablet, 20 MG PO DAILY for DEPRESSION, (Reported) Entered as Reported by: FRANK SPENCER on 08/31/18 1451 Last Taken: Unknown Dose on 09/04/18 0615 Last Action: Last Taken Edited on 09/04/18 0832 by ELI POWELL Scheduled PRN Hydrocodone Bit/Acetaminophen (Hydrocodone-Apap 5-325 ) 1 Tab Tablet, 1 TAB PO PRN Q4HRS PRN for MILD PAIN, #30 Ref 0 Prescribed by: Marie Dalton on 09/06/18 0849 MARIE DALTON APRN Sep 10, 2018 10:02
== END 2018-09-06 12:30 | disposition home or self-care (01) ==
LOC: SURG 08:04 → INTOOBSV 11:52 → 4 NORTH 11:52
PROVIDERS: ADMIT Surgery; ATTEND Surgery
DX: K43.2 Incisional hernia without obstruction or gangrene (principal); I10 Essential (primary) hypertension; F41.1 Generalized anxiety disorder; E11.9 Type 2 diabetes mellitus without complications; Z82.49 Family history of ischemic heart disease and other diseases of the circulatory system; Z79.899 Other long term (current) drug therapy
CPT/HCPCS: 36415; 49560; 49568; 74018; 85025; 88302; 88304; 96372; 96374; 96376; A7015; G0378; G0379; J1100; J1650; J1815; J1885; J2001; J2270; J2405; J2704; J3010; J3490; C1781; J7120

== ENCOUNTER → 2019-06-14 | Outpatient (CLI) | payer BC ==
[~2019-06-14] MED LIST changes: +HYDR-2761 PO; -HYDROmorphone 2 MG/ML VIAL IV PRN; -LIDOCAINE 1% PF 2 ML VIAL. ID PRN; -MORPHINE SULFATE 2 MG/ML VIAL. IV PRN; -PROCHLORPERAZINE 10 MG/2 ML VIAL. IV PRN; -ceFAZolin SODIUM 3 GM in IV DEXTROSE 5% 100ML 100 ML IV PRN; -fentaNYL PF VIAL 100 MCG/2 ML VIAL IV PRN
--- NOTE | 2019-06-14 16:00 | KCIC ---
Bilateral digital screening mammograms with 3-D tomosynthesis: Reason for examination: Routine baseline screening. History of bilateral breast reduction. Bilateral mammograms in CC and oblique projections were obtained with 2-D imaging and 3-D tomosynthesis imaging on a Siemens Inspiration unit and reviewed on the workstation. Interpretation was made with the benefit of CAD. The skin and nipples show no abnormalities. No abnormal axillary lymph nodes are seen. The breast parenchyma shows scattered fatty and fibroglandular density. (Breast density: Category B.) There are postop changes from breast reduction. There are no dominant masses, suspicious calcifications or architectural distortion. Benign calcifications are present. Impression: No evidence of malignancy. Recommend routine screening. BI-RAD Category 2: Benign. "Our facility is accredited by the [employer] Mammography [employer]." This patient's information has been entered into a reminder system for the patient to be notified with the results of her examination and a target date for the next mammogram. Electronically signed by: Sherley Conrad MD (06/14/2019 3:58 PM) [id number]
== END | disposition home or self-care (01) ==
LOC: KCIC MAMMO 13:46
PROVIDERS: ATTEND Family Medicine
DX: Z12.31 Encounter for screening mammogram for malignant neoplasm of breast (principal); N64.89 Other specified disorders of breast
CPT/HCPCS: 77063; 77067

== ENCOUNTER → 2021-02-08 | Outpatient (CLI) | payer BC ==
--- NOTE | 2021-02-08 13:35 | KCIC ---
Bilateral digital screening mammograms with 3-D tomosynthesis: Reason for examination: Routine screening. History of bilateral breast reduction. Comparison is made to previous study dated 06/14/2019. Bilateral mammograms in CC and oblique projections were obtained with 2-D imaging and 3-D tomosynthes is imaging on a Siemens Inspiration unit and reviewed on the workstation. Interpretation was made wit h the benefit of CAD. The skin and nipples show no abnormalities. No abnormal axillary lymph nodes are seen. The breast par enchyma shows scattered fatty and fibroglandular density. (Breast density: Category B.) There are no dominant masses, suspicious calcifications or architectural distortion. Benign calcifications are pre sent and appear to be stable. Impression: No evidence of malignancy. Recommend routine screening. BI-RAD Category 2: Benign. "Our facility is accredited by the [employer] Mammography [employer]." This patient's information has been entered into a reminder system for the patient to be notified wit h the results of her examination and a target date for the next mammogram. Electronically signed by: Sherley Conrad MD (02/08/2021 1:32 PM) [id number]
== END ==
LOC: KCIC MAMMO 08:01
PROVIDERS: ATTEND Family Medicine
DX: Z12.31 Encounter for screening mammogram for malignant neoplasm of breast (principal)
CPT/HCPCS: 77063; 77067

== ENCOUNTER → 2021-10-15 | Outpatient (CLI) | payer BC ==
--- NOTE | 2021-10-15 09:28 | KCIC ---
XR CHEST 2V History: Intermittent chest pain post respiratory infection. Comparison: 02/10/2018 Technique: PA and lateral chest radiographs. Findings: The lungs are adequately and symmectrically inflated. No airspace consolidation, pleural effusion or pneumothorax. The cardiomediastinal silhoutte and pulmonary vasculature are within normal limits. Jordin wing osteophytes in the spine. Surgical clips in the upper abdomen. Impression: 1. No acute cardiopulmonary process. Electronically signed by: Tristin Villanueva MD (10/15/2021 9:26 AM) [id number]
== END ==
LOC: KCIC 08:07
PROVIDERS: ATTEND Family Medicine
DX: R07.9 Chest pain, unspecified (principal); M25.78 Osteophyte, vertebrae
CPT/HCPCS: 71046